=== PATIENT | male | born 1985 | race Caucasian/White ===

== ENCOUNTER 2023-04-03 08:07 | Outpatient (REF) | payer OTHER, SELFPAY ==
[2023-04-03 08:59] LABS: Hematocrit 38.8 % (42.0-52.0); Mean Corpuscular HGB Conc 33.5 g/dl (31.0-36.0); Mean Corpuscular Hemoglobin 28.6 pg (27.0-33.0); Mean Corpuscular Volume 85.5 fL (80.0-98.0); Mean Platelet Volume 10.4 fL (9.4-12.4); Platelet Count 262 X10*3/uL (160-400); Red Blood Count 4.54 X10*6/uL (4.60-5.80)
[2023-04-03 09:12] LABS: Estimated Average Glucose 108 mg/dL; Hemoglobin A1c % 5.4 %
[2023-04-03 09:47] LABS: Alanine Aminotransferase 41 U/L (0-40); Alkaline Phosphatase 91 U/L (39-117); Anion Gap 17 (12-20); Aspartate Amino Transferase 32 U/L (5-37); Bilirubin Total 0.3 mg/dL (0.0-1.0); Blood Urea Nitrogen 9 mg/dL (9-16); Carbon Dioxide 26 mmol/L (22-29); Chloride 105 mmol/L (96-108); Cholesterol 286 mg/dL; Estimated Glomerular Filt Rate > 60; Glucose Fasting 95 mg/dL (60-99); Glucose Random 95 mg/dL (60-115); HDL Cholesterol 33 mg/dL; Potassium 4.6 mmol/L (3.3-5.1); Sodium 143 mmol/L (135-145); Total Protein 7.3 g/dL (6.5-8.0); Triglycerides 439 mg/dL
[2023-04-03 09:54] LABS: TSH reflex Free T4 2.66 uIU/mL (0.32-4.0)
== END 2023-04-03 08:08 | disposition home or self-care (01) ==
LOC: HO.LAB 08:07
PROVIDERS: PCP Nurse Practitioner Family; Visit Provider Nurse Practitioner Family
DX: Z13.220 Encounter for screening for lipoid disorders (principal); Z13.29 Encounter for screening for other suspected endocrine disorder; Z13.0 Encounter for screening for diseases of the blood and blood-forming organs and certain disorders involving the immune mechanism; R73.09 Other abnormal glucose; I10 Essential (primary) hypertension
CPT/HCPCS: 36415; 80053; 80061; 83036; 84443; 85027

== ENCOUNTER 2023-04-26 10:27 | Outpatient (AMB) | payer OTHER, SELFPAY ==
--- NOTE | 2023-04-26 10:34 | MHC.PC.OV ---
Vital Signs 04/26/23 10:40 Height 6 ft Weight 302 lb BMI 41.0 BP 124/78 Blood Pressure Location Lt brachial Position Sitting Pulse 82 Pulse Source Pulse Oximeter Pulse Oximetry (%) 98 Oxygen Delivery Method Room Air Intake Visit Reasons: physical exam, HTN, Allergies ivp dye Allergy (Severe, Uncoded 04/26/23 10:40) Anaphylaxis Tobacco use date assessed: 04/26/23 Dental Screening Dental Screen Date: 04/26/23 Did you have a dental visit in the last 12 months?: Yes Did you have a dental problem in the last 6 months where you did not have access to dental care?: No Was dental information given to patient?: Patient has dentist HPI HPI Comments History of Present Illness Details 37-year-old male Past medical history significant for hypertension, anxiety, depression, past hx opiate abuse. Patient last seen in March for migraine was prescribed sumatriptan. Patient presents today for physical exam. Patient reports headaches have improved, has not required taking sumatriptan. Patient reports starting up with the [facility] program through [facility]. PAtient reports ongoing lumbar back pain/ neck pain for which he takes ibuprofen with relief of pain, state has not had recent imaging. Xray ordered. Referral sent to PT for lumbar back pain. Resides at [facility] Psych and therapist, [facility]; [facility]: sublicaide injection Eye exam: November 2022, reports he was told he has early stages of cataract. Complete labs completed the beginning of this month and reviewed with patient. [facility] Medical History Kyphosis Opioid abuse Family History Mother Substance abuse COPD (chronic obstructive pulmonary disease) Anxiety Father Brain aneurysm Paternal Grandmother Lung cancer Paternal Grandfather Liver cancer Maternal Grandmother Stomach cancer Liver cancer Other FH: mental illness Social History Housing: Assisted Living Facility Alcohol intake: never Patient Tobacco Use Status: Former Tobacco user Tobacco use type: Cigarette Cigarettes Per Day: 5 e-Cigarette/Vaping Use: Currently Using Second Hand Smoke Exposure: No service: No Current occupational status: unemployed Current occupational exposures/hazards: No Cognitive needs: No Hearing needs: No Vision needs: Yes Questionnaire PHQ-9 Over the last 2 weeks, how often have you been bothered by any of the following problems? 1. Little interest or pleasure in doing things: more than half the days 2. Feeling down, depressed, or hopeless: not at all 3. Trouble falling or staying asleep, or sleeping too much: more than half the days 4. Feeling tired or having little energy: several days 5. Poor appetite or overeating: not at all 6. Feeling bad about yourself - or that you are a failure or have let yourself or your family down: several days 7. Trouble concentrating on things, such as reading the newspaper or watching television: more than half the days 8. Moving or speaking so slowly that other people could have noticed. Or the opposite - being so fidgety or restless that you have been moving around a lot more than usual: more than half the days 9. Thoughts that you would be better off or of hurting yourself in some way: not at all Total score: 10 Depression Screening Interpretation: Positive [id number] - PHQ-9 Billing: Yes Source: Developed by Drs. Lazaro Palomares, Allyssa Orellana, Deangelo Ritchie and colleagues, with an educational ankit from [employer]. Thrive Questionnaire Date Thrive assessed: 04/26/23 I am a: Patient What is your living situation today?: I have a steady place to live Within the past 12 months, did the food you bought not last and you didn't have the money to get more?: Never true Within the past 12 months, did you worry whether your food would run out before you got money to buy more?: Never true Do you have trouble paying for medicines?: No Do you have trouble getting transportation to medical appointments?: No Do you have trouble paying your heating and electricity bill?: No Do you have trouble taking care of your child, family member or friend?: No Do you have trouble with day-to-day activities such as bathing, preparing meals, shopping, managing finances, etc.?: No Are you currently unemployed and looking for a job?: No Are you interested in more education?: No Currently or been in a relationship where the following occur: no concerns reported AUDIT C Alcohol Use Questionnaire (AUDIT-C) 1. How often do you have a drink containing alcohol?: Never Total Score: 0 Score Reviewed/Action Taken: No MAX-7 AMB Questionnaire MAX-7 Date MAX - 7 assessed: 01/19/23 Source: Developed by Drs. Lazaro Palomares, Allyssa Orellana, Deangelo Ritchie and colleagues, with an educational ankit from [employer]. Review of Systems Const Denies chills, Denies fatigue, Denies fever(s) and Denies poor appetite Eyes Denies no additional complaints ENT Reports Normal hearing present Card Denies chest pain, Denies syncope, Denies rapid heart rate and Denies dyspnea Resp Denies cough and Denies dyspnea GI Denies change in stool character, Denies constipation, Denies diarrhea, Denies nausea and Denies vomiting Denies dysuria, Denies urinary frequency and Denies urinary urgency Neuro Reports Normal hearing present, Denies confusion and Denies syncope Psych Denies confusion Endo Denies fatigue Physical exam (Primary Care) Vital Signs: Last Vital Signs Pulse 82 04/26/23 10:40 BP 124/78 04/26/23 10:40 Pulse Ox 98 04/26/23 10:40 Oxygen Delivery Method Room Air 04/26/23 10:40 BMI result Body Mass Index 41.0 Tobacco/Smoking Status: Tobacco use Status Tobacco use date assessed 04/26/23 04/26/23 10:47 Patient Tobacco Use Status Former Tobacco user 04/26/23 10:34 Tobacco use type Cigarette 04/26/23 10:34 e-Cigarette/Vaping Use Currently Using 04/26/23 10:34 PHQ-9: PHQ-9 Score PHQ-9: Total score 10 04/26/23 10:54 Depression Screening Interpretation: Positive Thrive Assessment: Date of Thrive Assessment Date Thrive assessed 04/26/23 04/26/23 10:47 Currently or been in a relationship where the following occur: no concerns reported Const General: No confusion Orientation/consciousness: No confusion HENMT Head: Yes normocephalic and Yes atraumatic Ears: external ears normal and TM's normal bilaterally General nose exam: Normal external nose present and Normal nasal mucous membranes and turbinates present Face and sinus: Yes normal facial exam and Yes sinuses nontender Mouth: moist mucous membranes Throat: Yes tonsils normal Eyes Conjunctivae: conjunctivae normal Sclerae: sclerae normal Pupils: Equal, round and reactive pupils present and Pupils normal by confrontation EOM: EOMs intact bilaterally Direct Ophthalmoscopy: normal light reflex Neck Neck: Yes no lymphadenopathy and Yes supple Thyroid: Thyroid normal Chest Chest palpation & inspection: normal inspection of the chest Resp Effort & Inspection: normal respiratory effort Auscultation: clear to auscultation bilaterally, no crackles, no rhonchi and no wheezes Cardio Rate: regular rate Rhythm: regular rhythm Peripheral pulses: radial pulses present and dorsalis pedis present GI Inspection: Yes normal to inspection Palpation (GI): Soft to palpation, nontender and No hepatosplenomegaly present Auscultation: normoactive bowel sounds Skin General skin exam: no rashes or lesions noted Neuro General: No confusion Cranial nerves: Yes Equal, round and reactive pupils present and Yes Normal hearing present Cognition (Neuro): normal cognition Gait exam (Neuro): Normal gait present Motor exam (neuro): 5/5 motor strength present throughout Deep tendon reflexes (DTR's): Right brachioradialis reflex intensity grade: 2+, Left brachioradialis reflex intensity grade: 2+, Right patellar reflex intensity grade: 2+ and Left patellar reflex intensity grade: 2+ Extrem General: No edema Assessment and Plan Assessment & Plan (1) Hypertriglyceridemia: Code(s): E78.1 - Pure hyperglyceridemia Plan: Avoid fried foods, chicken skin, eggs, butter,margarine, pastries and red meat. Repeat fasting labs in 3 months (2) HTN (hypertension): Code(s): I10 - Essential (primary) hypertension Plan: Continue on metoprolol. B/p below goal today. Follow low salt diet and exercise. (3) Opioid abuse: Code(s): F11.10 - Opioid abuse, uncomplicated Plan: Continue to follow with [facility]. (4) Physical exam, annual: Code(s): Z00.00 - Encounter for general adult medical examination without abnormal findings Plan: Follow up in 1 year (5) Degenerative disc disease, lumbar: Code(s): M51.36 - Other intervertebral disc degeneration, lumbar region Plan: Xray ordered, continue on ibuprofen as needed for pain. Referral sent to PT. Plan Follow up in 3 months. Orders: Orders XR cervical spine 2V Today M54.2 - Cervicalgia XR lumbar spine 2-3V Today M51.36 - Other intervertebral disc degeneration, lumbar region PT Evaluation and Treatment Today M51.36 - Other intervertebral disc degeneration, lumbar region Medications: Refilled metoprolol tartrate 25 mg PO BID 60 tabs 3RF I10 - Essential (primary) hypertension Coding Level of Care Code Est Pt Prev Care 40-64y(98600) Diagnoses Hypertriglyceridemia E78.1 HTN (hypertension) I10 Opioid abuse F11.10 Physical exam, annual Z00.00 Degenerative disc disease, lumbar M51.36
[2023-04-26 10:40] VITALS: BP 124/78; PULSE 82; O2SAT 98; BMI 41.0
== END 2023-04-26 11:17 | disposition home or self-care (01) ==
PROVIDERS: PCP Nurse Practitioner Family; Visit Provider Nurse Practitioner Family
DX: E78.1 Pure hyperglyceridemia (principal); I10 Essential (primary) hypertension; F11.10 Opioid abuse, uncomplicated; Z00.00 Encounter for general adult medical examination without abnormal findings; M51.36 Other intervertebral disc degeneration, lumbar region
CPT/HCPCS: 99396

== ENCOUNTER 2023-05-10 12:29 | Outpatient (REF) | payer OTHER, SELFPAY ==
--- NOTE | ~2023-05-10 | XR_ITS ---
EXAMINATION: XR CERVICAL SPINE CLINICAL INFORMATION: Pain. COMPARISON: None available. TECHNIQUE: 4 views submitted. FINDINGS: Some straightening of the normal cervical lordosis. There is early degenerative changes at C4-C5, C5-C6 and C6-C7 with some loss of disc height and some posterior spurring at C5-C6 greater than the other levels. Mild scoliosis convex left is seen. No listhesis or compression injury is seen. XR/XR cervical spine 2V IMPRESSION: Some early degenerative changes are present here. Mild straightening of the normal cervical lordosis may be due to position or spasm.
--- NOTE | ~2023-05-10 | XR_ITS ---
EXAMINATION: XR LUMBOSACRAL SPINE CLINICAL INFORMATION: Pain. COMPARISON: None available. TECHNIQUE: Three views of the lumbosacral spine. FINDINGS: There is grade 1 anterolisthesis of L5 relative to L4. Spondylolysis cannot be excluded on the imaging submitted. Loss of disc height at L4-L5 as well as L3-L4 and L2-L3 and at the thoracolumbar junction. Spurring in the endplates is noted. The SI joints are grossly patent. Some sclerotic change in the posterior elements from L4-L5 to L5-S1 could be degenerative. Mild anterolisthesis of L3 relative to L2 is also seen. XR/XR lumbar spine 2-3V IMPRESSION: Some degenerative change here appears [id number] with areas of listhesis. Spondylolysis cannot be excluded. No compression injury. If further evaluation is warranted consider .
== END 2023-05-10 12:30 | disposition home or self-care (01) ==
LOC: HO.XRAY 12:29
PROVIDERS: PCP Nurse Practitioner Family; Visit Provider Nurse Practitioner Family
DX: M54.2 Cervicalgia (principal); M51.36 Other intervertebral disc degeneration, lumbar region
CPT/HCPCS: 72040; 72100

== ENCOUNTER 2023-08-09 14:15 | Outpatient (AMB) | payer OTHER, SELFPAY ==
[2023-08-09 14:17] VITALS: BP 120/88; PULSE 95; O2SAT 95; BMI 40.3
--- NOTE | 2023-08-09 14:17 | A.OFFPC_ITS ---
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: No Accompanied by: Self / Same As Patient Allergies ivp dye Allergy (Severe, Uncoded 04/26/23 10:40) Anaphylaxis Tobacco use date assessed: 04/26/23 Dental Screening Dental Screen Date: 08/09/23 Did you have a dental visit in the last 12 months?: Yes Did you have a dental problem in the last 6 months where you did not have access to dental care?: No Was dental information given to patient?: Patient has dentist HPI HPI Comments History of Present Illness Details 37-year-old male Past medical history si gnificant for hypertension, anxiety, depression, past hx opiate abuse follows with [facility] on supple gait injections, lumbar degenerative disc disease. Never started PT, will call to set up. Patient reports he will call to set up PT for his lumbar back pain. Patient also reports migraine headaches have been coming more frequently and sometimes gets headaches daily. Patient states has been taking ibuprofen twice daily with somewhat improvement of the pain and he only takes this sumatriptan when headache is more severe. Patient does report mostly gets relief from sumatriptan however occasionally only gets minimal relief. Patient also reports ongoing tinnitus in the right ear that is very high-pitched that will last 30 seconds and states following this he reports total loss of hearing for 30 seconds. Patient requesting hearing study to be completed. [facility]LY [facility] Medical History Kyphosis Opioid abuse Family History Mother Substance abuse COPD (chronic obstructive pulmonary disease) Anxiety Father Brain aneurysm Paternal Grandmother Lung cancer Paternal Grandfather Liver cancer Maternal Grandmother Stomach cancer Liver cancer Other FH: mental illness Social History Housing: Assisted Living Facility Alcohol intake: never Patient Tobacco Use Status: Former Tobacco user Tobacco use type: Cigarette Cigarettes Per Day: 5 e-Cigarette/Vaping Use: Currently Using Second Hand Smoke Exposure: No service: No Current occupational status: unemployed Current occupational exposures/hazards: No Cognitive needs: No Hearing needs: No Vision needs: Yes Questionnaire Thrive Questionnaire Date Thrive assessed: 04/26/23 MAX-7 AMB Questionnaire MAX-7 Date MAX - 7 assessed: 01/19/23 Source: Developed by Drs. Lazaro Palomares, Allyssa Orellana, Deangelo Ritchie and colleagues, with an educational ankit from [employer]. Review of Systems Const Denies chills, Denies fatigue, Denies fever(s) and Denies poor appetite Eyes Denies no additional complaints ENT Reports Normal hearing present Card Denies chest pain, Denies syncope, Denies rapid heart rate and Denies dyspnea Resp Denies cough and Denies dyspnea GI Denies change in stool character, Denies constipation, Denies diarrhea, Denies nausea and Denies vomiting Denies dysuria, Denies urinary frequency and Denies urinary urgency Neuro Reports Normal hearing present, Denies confusion and Denies syncope Psych Denies confusion Endo Denies fatigue Physical exam (Primary Care) Vital Signs: Last Vital Signs Pulse 95 08/09/23 14:17 BP 120/88 08/09/23 14:17 Pulse Ox 95 08/09/23 14:17 Oxygen Delivery Method Room Air 08/09/23 14:17 BMI result Body Mass Index 40.3 Tobacco/Smoking Status: Tobacco use Status Tobacco use date assessed 04/26/23 08/09/23 14:18 Patient Tobacco Use Status Former Tobacco user 08/09/23 14:18 Tobacco use type Cigarette 08/09/23 14:18 e-Cigarette/Vaping Use Currently Using 08/09/23 14:18 Thrive Assessment: Date of Thrive Assessment Date Thrive assessed 04/26/23 08/09/23 14:18 Const General: No confusion Orientation/consciousness: No confusion HENMT Head: Yes normocephalic and Yes atraumatic Eyes Conjunctivae: conjunctivae normal Chest Chest palpation & inspection: normal inspection of the chest Resp Effort & Inspection: normal respiratory effort Auscultation: clear to auscultation bilaterally, no crackles, no rhonchi and no wheezes Cardio Rate: regular rate Rhythm: regular rhythm Heart sounds: S1 normal heart sound present and S2 normal heart sound present GI Inspection: Yes normal to inspection Neuro General: No confusion Cranial nerves: Yes Normal hearing present Extrem General: No edema Assessment and Plan Assessment & Plan (1) Tinnitus: Code(s): H93.19 - Tinnitus, unspecified ear Plan: Referral entered to speech and hearing for further evaluation. (2) Obesity: Code(s): E66.9 - Obesity, unspecified Plan: Patient requesting referral to weight management, referral entered (3) Headache: Code(s): R51.9 - Headache, unspecified Plan: Continue on ibuprofen as needed for headaches and sumatriptan. Patient requesting referral to Neurology for further evaluation of his headaches, referral entered. (4) Degenerative disc disease, lumbar: Code(s): M51.36 - Other intervertebral disc degeneration, lumbar region Plan: Patient advised to proceed with physical therapy. (5) HTN (hypertension): Code(s): I10 - Essential (primary) hypertension Plan: Continue on metoprolol 25 mg b.i.d.. Blood pressure goal less than 140/90. Follow low-salt diet and exercise. Plan Follow-up in 3 months. Orders: Orders Complete Blood Count Auto Diff 08/09/23 D64.9 - Anemia, unspecified Referrals Speech and Hearing Referral H93.19 - Tinnitus, unspecified ear Medical Weight Management Referral E66.9 - Obesity, unspecified Neurology Referral R51.9 - Headache, unspecified Medications: Refilled omeprazole 20 mg PO DAILY PRN 90 caps 2RF gastric reflux metoprolol tartrate 25 mg PO BID 60 tabs 3RF I10 - Essential (primary) hypertension loratadine 10 mg PO DAILY 90 tabs 2RF Coding Level of Care Code Est Pt Level 4 (55886) Diagnoses Tinnitus H93.19 Obesity E66.9 Headache R51.9 Degenerative disc disease, lumbar M51.36 HTN (hypertension) I10
== END 2023-08-09 14:43 | disposition home or self-care (01) ==
PROVIDERS: PCP Nurse Practitioner Family; Visit Provider Nurse Practitioner Family
DX: H93.11 Tinnitus, right ear (principal); I10 Essential (primary) hypertension; E66.9 Obesity, unspecified; Z68.41 Body mass index [BMI] 40.0-44.9, adult; R51.9 Headache, unspecified; M51.36 Other intervertebral disc degeneration, lumbar region
CPT/HCPCS: 99214

== ENCOUNTER 2023-09-05 09:07 | Outpatient (REF) | payer OTHER, SELFPAY ==
[2023-09-05 09:28] LABS: MANUAL DIFF FLAG NO
[2023-09-05 09:40] LABS: Basophils Absolute Auto 0.1 X10*3/uL (0.0-0.2); Basophils Percent Auto 0.9 % (0-2); Eosinophils Absolute Auto 0.4 X10*3/uL (0.0-0.4); Eosinophils Percent Auto 4.9 % (0-4); Hematocrit 40.1 % (42.0-52.0); Hemoglobin 13.4 g/dl (14.0-18.0); Imm Gran Abs Auto 0.06 X10*3/uL (0.00-0.03); Imm Gran Pct Auto 0.7 % (0.0-0.4); Lymphocytes Absolute Auto 1.7 X10*3/uL (1.2-4.9); Lymphocytes Percent Auto 20.8 % (20-40); Mean Corpuscular HGB Conc 33.4 g/dl (31.0-36.0); Mean Corpuscular Hemoglobin 28.4 pg (27.0-33.0); Mean Platelet Volume 9.8 fL (9.4-12.4); Monocytes Absolute Auto 0.5 X10*3/uL (0.1-1.2); Monocytes Percent Auto 5.8 % (2-11); Neutrophils Absolute Auto 5.5 x10*3/uL (2.0-8.3); Neutrophils Percent Auto 66.9 % (45-73); Platelet Count 300 X10*3/uL (160-400); Red Blood Count 4.72 X10*6/uL (4.60-5.80); Red Cell Distribution Width 14.3 % (11.0-16.0); White Blood Count 8.2 X10*3/uL (4.8-10.8)
[2023-09-05 10:18] LABS: Alanine Aminotransferase 46 U/L (0-40); Albumin Level 4.3 g/dL (3.5-5.0); Alkaline Phosphatase 124 U/L (39-117); Anion Gap 11 (12-20); Aspartate Amino Transferase 33 U/L (5-37); Bilirubin Total 0.3 mg/dL (0.0-1.0); Blood Urea Nitrogen 9 mg/dL (9-16); Calcium 10.2 mg/dL (8.4-10.2); Carbon Dioxide 29 mmol/L (22-29); Chloride 106 mmol/L (96-108); Cholesterol 251 mg/dL (<200); Estimated Glomerular Filt Rate > 60; Glucose Fasting 99 mg/dL (60-99); HDL Cholesterol 37 mg/dL (>40); LDL Cholesterol Calculated 152 mg/dL (<100); Potassium 4.2 mmol/L (3.3-5.1); Sodium 142 mmol/L (135-145); Total Protein 7.9 g/dL (6.5-8.0); Triglycerides 312 mg/dL (<150)
== END 2023-09-05 09:08 | disposition home or self-care (01) ==
LOC: HO.LAB 09:07
PROVIDERS: Visit Provider Nurse Practitioner Family
DX: E78.1 Pure hyperglyceridemia (principal); D64.9 Anemia, unspecified
CPT/HCPCS: 36415; 80053; 80061; 85025

== ENCOUNTER 2023-09-07 10:04 | Outpatient (AMB) | payer OTHER, SELFPAY ==
--- NOTE | 2023-09-07 11:47 | MHC.OFFWIV ---
Intake Vital Signs 09/07/23 11:51 Height 6 ft Weight 298 lb BMI 40.4 BP 140/90 H Blood Pressure Location Rt brachial Position Sitting Pulse 88 Pulse Source Pulse Oximeter Temp 97.1 F Temp Source Temporal Artery Scan Pulse Oximetry (%) 95 Oxygen Delivery Method Room Air Intake Visit Reasons: EP Coug(masked) Dropped off Intake Note: Pt is here c/o bad cough since 08/26/23. Pt states he has tried otc medication but they are not working. Pt states he is in a recovery home and can only take better medications if prescribed. Pt is requesting possible steroid for cough. Pt states his cough is painful and has a bad taste. Patient Tobacco Use Status: Former Tobacco user Allergies ivp dye Allergy (Severe, Uncoded 09/07/23 11:52) Anaphylaxis Do you need a note to return to daycare/school/sports/work: No HPI HPI Comments History of Present Illness Details Patient is a 38yo M who presents for cough He is in a transition house and they recommended him be seen for his cough He had URI symptoms since with cough, congestion, body aches, fatigue etc He said sinus symptoms have cleared and he only has lingering cough No fever or chills No phlegm Minimal SOB sometimes with exertion Sometimes wheeze at night Using OTC cough medicine, vicks rub, tylenol prn without resolution Feeling well otherwise. No other complaints [facility] Medical History Kyphosis Opioid abuse Family History Mother Substance abuse COPD (chronic obstructive pulmonary disease) Anxiety Father Brain aneurysm Paternal Grandmother Lung cancer Paternal Grandfather Liver cancer Maternal Grandmother Stomach cancer Liver cancer Other FH: mental illness Social History Housing: Assisted Living Facility Alcohol intake: never Patient Tobacco Use Status: Former Tobacco user Tobacco use type: Cigarette Cigarettes Per Day: 5 e-Cigarette/Vaping Use: Currently Using Second Hand Smoke Exposure: No service: No Current occupational status: unemployed Current occupational exposures/hazards: No Cognitive needs: No Hearing needs: No Vision needs: Yes Review of Systems Const Denies body aches, Denies chills, Denies fatigue, Denies fever(s) and Denies headache(s) Eyes Denies blurry vision ENT Denies otalgia, Denies headache(s), Denies nasal congestion, Denies nasal discharge, Denies sinus pain, Denies sinus pressure and Denies sore throat Card Denies chest pain and Denies chest pain at rest Resp Reports cough and Denies pain with cough GI Denies abdominal pain Neuro Denies headache(s) Endo Denies fatigue Physical Exam Vital Signs: Last Vital Signs Temp 97.1 F 09/07/23 11:51 Pulse 88 09/07/23 11:51 BP 140/90 H 09/07/23 11:51 Pulse Ox 95 09/07/23 11:51 Oxygen Delivery Method Room Air 09/07/23 11:51 BMI result Body Mass Index 40.4 General: Non-toxic, NAD. Speaking full sentences. Skin: Warm dry throughout Eye: EOMI HENT: Airway patent. Uvula midline. No pharyngeal erythema or edema. No SENIOR ADMINISTRATIVE SUPPORT. Bilateral canals clear. TM non-erythematous, non-bulging. No TM perforation or hemotympanum noted. Respiratory: CTA bilaterally. No wheezes, rales or rhonchi Cardiac: RRR. No murmur MSK: Full ROM extremities. Neurology: A/O. No aphasia or facial droop. Gait without abnormality Psych: Good mood and affect Assessment & Plan Assessment & Plan (1) Cough: Code(s): R05.9 - Cough, unspecified Qualifiers: Cough type: acute Qualified Code(s): R05.1 - Acute cough Plan Patient seen and evaluated. Thorough aucultation of lungs are clear No respiratory distress Tessalon for cough Increase fluids and monitor for 4 more days Any onset fever, SOB< worsening cough etc go to ED PCP follow up Patient gave verbal understanding and had no additional questions or concerns at time of discharge All questions answered Medications: New benzonatate 200 mg PO BID-TID PRN 14 caps 0RF cough R05.9 - Cough, unspecified Coding Level of Care Code Est Pt Level 3 (28884) Diagnoses Acute cough R05.1 Cough type: acute
[2023-09-07 11:51] VITALS: BP 140/90; PULSE 88; TEMP 36.2; O2SAT 95; BMI 40.4
== END 2023-09-07 12:22 | disposition home or self-care (01) ==
PROVIDERS: PCP Nurse Practitioner Family; Visit Provider Physician Assistant
DX: R05.1 Acute cough (principal)
CPT/HCPCS: 99213

== ENCOUNTER 2023-09-20 15:27 | Outpatient (AMB) | payer OTHER, SELFPAY ==
--- NOTE | 2023-09-20 15:29 | A.OFFPC_ITS ---
Vital Signs 09/20/23 15:31 Height 6 ft Weight 302 lb 2 oz BMI 41.0 BP 128/78 Blood Pressure Location Lt brachial Position Sitting Pulse 83 Pulse Source Pulse Oximeter Pulse Oximetry (%) 97 Oxygen Delivery Method Room Air Intake Visit Reasons: Abnormal Lab results Intake Note: Patient is here to follow up on abnormal lab results. Complaint of coughing and wheezing, covid test neg. Solution Consultant Required: No Supervisor Home Energy Consultant: Present Accompanied by: staff Allergies ivp dye Allergy (Severe, Uncoded 09/20/23 16:05) Anaphylaxis Medication List - Last Reconciled 09/20/23 by Ruy Clarke MD acetaminophen ER (Pain Relief (acetaminophen)) 650 mg PO Q8H buprenorphine ER (Sublocade) mg subcut buspirone 10 mg PO TID clonidine HCl 0.1 mg PO BEDTIME PRN ibuprofen 600 mg PO Q6H PRN loratadine 10 mg PO DAILY magnesium hydroxide (Milk Of Magnesia Concentrated) 5 mL PO DAILY PRN melatonin 5 mg PO BEDTIME PRN metoprolol tartrate 25 mg PO BID naloxone 4 mg/actuation (Narcan) 4 mg intranasal Q2M PRN omeprazole 20 mg PO DAILY PRN sertraline 100 mg PO DAILY sumatriptan succinate take 1 tab at onset of headache; if no relief may repeat 1 tab after at least 2 hrs; max = 4 tabs/24 hr PO Tobacco use date assessed: 09/20/23 Dental Screening Did you have a dental visit in the last 12 months?: Yes Did you have a dental problem in the last 6 months where you did not have access to dental care?: No Was dental information given to patient?: Patient has dentist HPI Abnormal Lab results HPI Details 38-year-old male presents to the office to discuss his medical conditions. He is transferring his care as his primary care provider has left the practice. Patient lives in a snf. Is recovering from substance use and is on Sublocade. He came to this visit with the staff from the snf. Patient is slowly recovering from an upper respiratory tract infection. Continues to have some wheezing and congestion. Recent blood work done was abnormal for increased cholesterol levels and slightly increased liver functions. Patient is not exercising or following any particular diet. [facility] Medical History (Updated 09/20/23 @ 16:08 by Ruy Clarke MD) Familial hypercholesterolemia Kyphosis Opioid abuse Surgical History (Updated 09/20/23 @ 15:36 by ИРИНА Smyth) No pertinent past surgical history Family History Mother Substance abuse COPD (chronic obstructive pulmonary disease) Anxiety Father Brain aneurysm Paternal Grandmother Lung cancer Paternal Grandfather Liver cancer Maternal Grandmother Stomach cancer Liver cancer Other FH: mental illness Social History (Updated 09/20/23 @ 15:36 by ИРИНА Smyth) Housing: Assisted Living Facility Alcohol intake: never Patient Tobacco Use Status: Current someday Tobacco user Tobacco use type: Cigarette Cigarettes Per Day: 3 e-Cigarette/Vaping Use: Currently Using Second Hand Smoke Exposure: No service: No Current occupational status: unemployed Current occupational exposures/hazards: No Cognitive needs: No Hearing needs: No Vision needs: Yes Questionnaire PHQ-9 Over the last 2 weeks, how often have you been bothered by any of the following problems? 1. Little interest or pleasure in doing things: not at all 2. Feeling down, depressed, or hopeless: several days (on medication) 3. Trouble falling or staying asleep, or sleeping too much: not at all 4. Feeling tired or having little energy: not at all 5. Poor appetite or overeating: not at all 6. Feeling bad about yourself - or that you are a failure or have let yourself or your family down: not at all 7. Trouble concentrating on things, such as reading the newspaper or watching television: not at all 8. Moving or speaking so slowly that other people could have noticed. Or the opposite - being so fidgety or restless that you have been moving around a lot more than usual: not at all 9. Thoughts that you would be better off or of hurting yourself in some way: not at all Total score: 1 Source: Developed by Drs. Lazaro Palomares, Allyssa Orellana, Deangelo Ritchie and colleagues, with an educational ankit from [employer]. Thrive Questionnaire Date Thrive assessed: 09/20/23 I am a: Patient What is your living situation today?: I have a steady place to live Within the past 12 months, did the food you bought not last and you didn't have the money to get more?: Never true Within the past 12 months, did you worry whether your food would run out before you got money to buy more?: Never true Do you have trouble paying for medicines?: No Do you have trouble getting transportation to medical appointments?: No Do you have trouble paying your heating and electricity bill?: No Do you have trouble taking care of your child, family member or friend?: No Do you have trouble with day-to-day activities such as bathing, preparing meals, shopping, managing finances, etc.?: No Are you currently unemployed and looking for a job?: No Are you interested in more education?: No Currently or been in a relationship where the following occur: no concerns reported AUDIT C Alcohol Use Questionnaire (AUDIT-C) 1. How often do you have a drink containing alcohol?: Never Total Score: 0 MAX-7 AMB Questionnaire MAX-7 Date MAX - 7 assessed: 09/20/23 Feeling nervous, anxious, or on edge: 1 = Several days (on medication) Not being able to stop or control worryin = Not at all Worrying too much about different things: 0 = Not at all Trouble relaxin = Not at all Being so restless that it is hard to sit still: 0 = Not at all Becoming easily annoyed or irritable: 0 = Not at all Feeling afraid as if something awful might happen: 0 = Not at all Total MAX-7 score (0-4 normal; 5-9 mild; 10-14 moderate; 15-21 severe): 1 Source: Developed by Drs. Lazaro Palomares, Allyssa Orellana, Deangelo Ritchie and colleagues, with an educational ankit from [employer]. Physical exam (Primary Care) Vital Signs: Last Vital Signs Pulse 83 09/20/23 15:31 BP 128/78 09/20/23 15:31 Pulse Ox 97 09/20/23 15:31 Oxygen Delivery Method Room Air 09/20/23 15:31 BMI result Body Mass Index 41.0 Tobacco/Smoking Status: Tobacco use Status Tobacco use date assessed 09/20/23 09/20/23 15:38 Patient Tobacco Use Status Current someday Tobacco 09/20/23 15:38 Tobacco use type Cigarette 09/20/23 15:38 e-Cigarette/Vaping Use Currently Using 09/20/23 15:38 PHQ-9: PHQ-9 Score PHQ-9: Total score 1 09/20/23 15:38 Thrive Assessment: Date of Thrive Assessment Date Thrive assessed 09/20/23 09/20/23 15:38 Currently or been in a relationship where the following occur: no concerns reported Const General: cooperative and healthy appearing Nutritional Appearance: well nourished Orientation/consciousness: patient oriented x3 Limitations: no limitations HENMT Head: Yes normal to inspection Eyes General: appearance normal, both eyes and all related structures Neck Neck: Yes normal visual inspection Chest Chest palpation & inspection: normal palpation of entire chest wall Resp Effort & Inspection: normal respiratory effort Neuro General: patient oriented x3 Assessment and Plan Assessment & Plan (1) Familial hypercholesterolemia: Code(s): E78.01 - Familial hypercholesterolemia Plan: Statins started. Blood work reviewed with patient. Coding Level of Care Code Est Pt Level 3 (49426) Diagnoses Familial hypercholesterolemia E78.01
[2023-09-20 15:31] VITALS: BP 128/78; PULSE 83; O2SAT 97; BMI 41.0
== END 2023-09-20 16:07 | disposition home or self-care (01) ==
PROVIDERS: PCP Nurse Practitioner Family; Visit Provider Internal Medicine
DX: E78.01 Familial hypercholesterolemia (principal)
CPT/HCPCS: 99213

== ENCOUNTER → 2023-12-05 11:08 | Outpatient (BNVA) | payer OTHER, SELFPAY | PROVIDERS: PCP Nurse Practitioner Family; Visit Provider Physician Assistant Surgical ==

== ENCOUNTER 2023-12-20 11:22 | Emergency (ER) | payer OTHER, SELFPAY ==
--- NOTE | 2023-12-20 11:54 | ED.SKABFB ---
HPI - Skin/Abscess/Foreign Bdy General Stated complaint: exposed to scabbies Time Seen by Provider: 12/20/23 11:40 Source: patient Mode of arrival: ambulatory Limitations: no limitations History of Present Illness HPI narrative: 38 yo patient at prison scabies exposure here asking for permethrin has no lesions MD complaint: other Onset (ago): day(s) (1) Relieving factors: none Exacerbating factors: none Context: other Associated symptoms: denies other symptoms Treatments prior to arrival: none Related Data Home Medications ?Medication ?Instructions ?Recorded ?Confirmed acetaminophen 650 mg 650 mg PO Q8H 01/19/23 02/09/23 tablet,extended release (Pain Relief (acetaminophen)) clonidine HCl 0.1 mg tablet 0.1 mg PO BEDTIME PRN 01/19/23 02/09/23 ibuprofen 600 mg tablet 600 mg PO Q6H PRN 01/19/23 02/09/23 magnesium hydroxide 2,400 mg/10 mL 5 ml PO DAILY PRN 01/19/23 02/09/23 oral suspension (Milk Of Magnesia Concentrated) melatonin 5 mg tablet 5 mg PO BEDTIME PRN 01/19/23 02/09/23 naloxone 4 mg/actuation nasal 4 mg intranasal Q2M PRN 01/19/23 02/09/23 spray (Narcan) sertraline 100 mg tablet 100 mg PO DAILY 01/19/23 02/09/23 buprenorphine 100 mg/0.5 mL mg subcut 03/05/23 solution,exten.rel.subcutaneous syringe (Sublocade) buspirone 10 mg tablet 10 mg PO TID 09/20/23 buprenorphine 100 mg/0.5 mL mg subcut 12/05/23 solution,exten.rel.subcutaneous syringe (Sublocade) Previous Rx's ?Medication ?Instructions ?Recorded sumatriptan succinate 25 mg tablet See Rx Instructions PO .COMPLEX 07/17/23 #20 tabs metoprolol tartrate 25 mg tablet 25 mg PO BID #60 tabs 12/17/23 atorvastatin 10 mg tablet 10 mg PO BEDTIME #90 tabs 12/18/23 loratadine 10 mg tablet 10 mg PO DAILY #90 tabs 12/18/23 omeprazole 20 mg capsule,delayed 20 mg PO DAILY PRN gastric reflux 12/18/23 release #90 caps permethrin 5 % topical cream 1 appl topical Q14D 2 doses #60 12/20/23 grams Allergies Allergy/AdvReac Type Severity Reaction Status Date / Time ivp dye Allergy Severe Anaphylaxis Uncoded 12/05/23 13:40 Review of Systems Review of Systems: Constitutional : No Fever, No Chills, Cardiovascular : No Chest Pain, No SOB Respiratory : No Dyspnea Gastrointestinal : No abdominal pain Musculoskeletal : No Joint Swelling Skin : No rash, no skin laceration Neuro : No Weakness, No Numbness Psych : No SI/HI PMFSH Past Medical History Attestation statement: The following information was validated with the patient. Source: old records reviewed Medical History Familial hypercholesterolemia Kyphosis Opioid abuse Surgical History (Updated 09/20/23 @ 15:36 by ИРИНА Smyth) No pertinent past surgical history Family History Family History Mother Substance abuse COPD (chronic obstructive pulmonary disease) Anxiety Father Brain aneurysm Paternal Grandmother Lung cancer Paternal Grandfather Liver cancer Maternal Grandmother Stomach cancer Liver cancer Other FH: mental illness Social History Social History Housing: Assisted Living Facility Alcohol intake: never Patient Tobacco Use Status: Current someday Tobacco user Tobacco use type: Cigarette Cigarettes Per Day: 3 e-Cigarette/Vaping Use: Currently Using Second Hand Smoke Exposure: No service: No Current occupational status: unemployed Current occupational exposures/hazards: No Cognitive needs: No Hearing needs: No Vision needs: Yes Physical Exam Vital Signs: Appearance: Alert. Oriented X3. No acute distress. Eyes: Pupils equal, round and reactive to light. ENT: Pharynx normal. Neck: Normal inspection. Neck supple. CVS: Pulses normal. Respiratory: No respiratory distress. Abdomen: atraumatic Skin: Skin warm and dry. Normal skin color. Extremities: No lower extremity edema. Neuro: Oriented X 3. No motor deficit. No sensory deficit. Medical Decision Making Medical Decision Making [facility] Narrative: 38 yo patient with scabies exposure at prison here asking for permethrin at this time will start on cream - no lesions or complaints Differential Diagnosis Differential Diagnoses: The differential diagnosis associated with the presentation includes scabies exposure External Record Review External record reviewed: Inpatient record Prescription Management I considered prescription management with: Other Discharge Plan Discharge Clinical Impression: Scabies exposure Patient Disposition: Home, Self-Care Instructions: Scabies (ED) Additional Instructions: return for worsening symptoms or concerns. Prescriptions: New permethrin 5 % cream 1 appl topical Q14D Qty: 60 0RF Rx Instructions: apply second treatment 14 days after first treatment if live lice remain No Action sumatriptan succinate 25 mg tablet See Rx Instructions PO .COMPLEX Qty: 20 0RF Rx Instructions: take 1 tab at onset of headache; if no relief may repeat 1 tab after at least 2 hrs; max = 4 tabs/24 hr PO metoprolol tartrate 25 mg tablet 25 mg PO BID Qty: 60 3RF atorvastatin 10 mg tablet 10 mg PO BEDTIME Qty: 90 1RF omeprazole 20 mg capsule,delayed release(DR/EC) 20 mg PO DAILY PRN (Reason: gastric reflux) Qty: 90 2RF loratadine 10 mg tablet 10 mg PO DAILY Qty: 90 2RF buspirone 10 mg tablet 10 mg PO TID acetaminophen [Pain Relief (acetaminophen)] 650 mg tablet extended release 650 mg PO Q8H clonidine HCl 0.1 mg tablet 0.1 mg PO BEDTIME PRN ibuprofen 600 mg tablet 600 mg PO Q6H PRN melatonin 5 mg tablet 5 mg PO BEDTIME PRN magnesium hydroxide [Milk Of Magnesia Concentrated] 2,400 mg/10 mL suspension 5 ml PO DAILY PRN naloxone [Narcan] 4 mg/actuation spray,non-aerosol 4 mg intranasal Q2M PRN Rx Instructions: spray 1 dose into ONE nostril; alternate nostrils w each dose until help arrives sertraline 100 mg tablet 100 mg PO DAILY Sublocade 100 mg/0.5 mL solution, extended rel syringe subcut Sublocade 100 mg/0.5 mL solution, extended rel syringe subcut Print Language: Kiswahili
[2023-12-20 12:22] VITALS: BP 132/75; PULSE 89; RESP 16; TEMP 36; O2SAT 95; BMI 41.1
[2023-12-20 12:48] VITALS: BP 132/75; PULSE 89; RESP 16; TEMP 36; O2SAT 96
--- NOTE | 2023-12-20 14:04 | MHC.CM.ED ---
[facility] Nurse made aware of scabies issue at custodial.
== END 2023-12-20 12:49 | disposition home or self-care (01) ==
PROVIDERS: Emergency Provider Emergency Medicine; PCP Internal Medicine
DX: Z20.7 Contact with and (suspected) exposure to pediculosis, acariasis and other infestations (principal)
CPT/HCPCS: 99282; 99283

== ENCOUNTER 2024-01-10 09:55 | Outpatient (AMB) | payer OTHER, SELFPAY ==
--- NOTE | 2024-01-10 10:09 | MHC.PC.OV ---
Vital Signs 01/10/24 10:12 Height 5 ft 10 in Weight 301 lb 2 oz BMI 43.2 BP 100/70 Blood Pressure Location Lt brachial Position Sitting Pulse 84 Pulse Source Pulse Oximeter Pulse Oximetry (%) 98 Oxygen Delivery Method Room Air Intake Visit Reasons: 3mth f/u Intake Note: Patient is here to follow up on HTN, LDDD, Hypertriglyceridemia, Hypercholesterolemia. Employee Benefits Attorney Required: No Preservationist: Not Required per policy Accompanied by: Self / Same As Patient Allergies ivp dye Allergy (Severe, Uncoded 01/13/24 13:53) Anaphylaxis Tobacco use date assessed: 01/10/24 Dental Screening Dental Screen Date: 01/10/24 Did you have a dental visit in the last 12 months?: Yes Did you have a dental problem in the last 6 months where you did not have access to dental care?: No Was dental information given to patient?: Patient has dentist HPI 3mth f/u HPI Details 38-year-old male presents to the office to discuss his medical condition. I will be picking up his care as his primary provider has left the practice. Patient has history of substance use, hyper cholesterolemia, obesity. Patient will be seeing a bariatric surgeon for weight management. Take statins for hyper cholesterolemia. Patient is on Sublocade. Able to function and do activities of daily living. [facility] Medical History (Updated 12/21/23 @ 00:00 by Noni Manley) Familial hypercholesterolemia Kyphosis Opioid abuse Surgical History No pertinent past surgical history Family History Mother Substance abuse COPD (chronic obstructive pulmonary disease) Anxiety Father Brain aneurysm Paternal Grandmother Lung cancer Paternal Grandfather Liver cancer Maternal Grandmother Stomach cancer Liver cancer Other FH: mental illness Social History (Updated 01/10/24 @ 10:23 by ИРИНА Smyth) Housing: Assisted Living Facility Alcohol intake: former Patient Tobacco Use Status: Former Tobacco user Cigarettes Per Day: 3 e-Cigarette/Vaping Use: Currently Using Second Hand Smoke Exposure: Yes service: No Current occupational status: unemployed Current occupational exposures/hazards: No Cognitive needs: No Hearing needs: No Vision needs: Yes Questionnaire Thrive Questionnaire Date Thrive assessed: 09/20/23 MAX-7 AMB Questionnaire MAX-7 Date MAX - 7 assessed: 09/20/23 Source: Developed by DrsSharonda Palomares, Allyssa Orellana, Deangelo Ritchie and colleagues, with an educational ankit from [email or web address]. Physical exam (Primary Care) Vital Signs: Last Vital Signs Pulse 84 01/10/24 10:12 BP 100/70 01/10/24 10:12 Pulse Ox 98 01/10/24 10:12 Oxygen Delivery Method Room Air 01/10/24 10:12 BMI result Body Mass Index 43.2 BMI Assessment/Plan discussion: High BMI High, discussed plan: lifestyle, weight reduction and dietary Tobacco/Smoking Status: Tobacco use Status Tobacco use date assessed 01/10/24 01/10/24 10:12 Patient Tobacco Use Status Former Tobacco user 01/10/24 10:24 Tobacco use type 01/10/24 10:24 e-Cigarette/Vaping Use Currently Using 01/10/24 10:23 Thrive Assessment: Date of Thrive Assessment Date Thrive assessed 09/20/23 01/10/24 10:12 Const General: cooperative and healthy appearing Nutritional Appearance: well nourished Orientation/consciousness: patient oriented x3 Limitations: no limitations HENMT Head: Yes normal to inspection Eyes General: appearance normal, both eyes and all related structures Neck Neck: Yes normal visual inspection Chest Chest palpation & inspection: normal palpation of entire chest wall Resp Effort & Inspection: normal respiratory effort Neuro General: patient oriented x3 Assessment and Plan Assessment & Plan (1) Familial hypercholesterolemia: Code(s): E78.01 - Familial hypercholesterolemia Plan: Blood work has been ordered. (2) Opioid abuse: Code(s): F11.10 - Opioid abuse, uncomplicated Plan: Patient is taking Sublocade. Orders: Orders Lipid Panel 01/10/24 E78.01 - Familial hypercholesterolemia Medications: Discontinued permethrin 5% apply second treatment 14 days after first treatment if live lice remain Discontinued Reason: Doctor's Order 1 appl topical Q14D 60 grams 0RF loratadine Discontinued Reason: Doctor's Order 10 mg PO DAILY 90 tabs 2RF Coding Level of Care Code Est Pt Level 4 (34318) Diagnoses Familial hypercholesterolemia E78.01 Opioid abuse F11.10
[2024-01-10 10:12] VITALS: BP 100/70; PULSE 84; O2SAT 98; BMI 43.2
== END 2024-01-10 10:37 | disposition home or self-care (01) ==
PROVIDERS: PCP Nurse Practitioner Family; Visit Provider Internal Medicine
DX: E78.01 Familial hypercholesterolemia (principal); F11.10 Opioid abuse, uncomplicated
CPT/HCPCS: 99214

== ENCOUNTER 2024-02-21 13:23 | Outpatient (AMB) | payer OTHER, SELFPAY ==
--- NOTE | 2024-02-21 13:27 | MHC.OFFVIS ---
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 Ringing in the ears Allergies ivp dye Allergy (Severe, Uncoded 01/13/24 13:53) Anaphylaxis Medication List - Last Reconciled 02/21/24 by MARIS Latham acetaminophen ER (Pain Relief (acetaminophen)) 650 mg PO Q8H atorvastatin 10 mg PO BEDTIME betamethasone, augmented 0.05 % topical BID buprenorphine ER (Sublocade) mg subcut buspirone 10 mg PO TID clonidine HCl 0.1 mg PO BEDTIME PRN metoprolol tartrate 25 mg PO BID omeprazole 20 mg PO DAILY PRN sertraline 200 mg PO DAILY sumatriptan succinate take 1 tab at onset of headache; if no relief may repeat 1 tab after at least 2 hrs; max = 4 tabs/24 hr PO HPI Comments Details: Right-handed 39-yr-old male presents for new pt evaluation of headache disorder and tinnitus. Pt accompanied by Shea, his acre coordinator from his support home. Pt reports he has headaches for about 2.5 yrs ago. These came out of the blue. In the past month, the headaches are not as severe. He has had bilateral L > R ear ringing x's 5 yrs.- he denies any known preceding causes. He has not seen ENT. He has been referred for audiology consult. 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 The tinnitus can change intensity w/o provocation, but is worse when anxious or when his BP is elevated. Jaw movement does not change the tinnitus significantly. PMH and ROS are notable for:? General: currently in recovery Musculoskeletal disorders or injury: thoracic kyphosis, Lumbar DDD, neck tightness. Mood d/o: Anxiety, Depression, PTSD, had neuro-psych eval at the [facility] last week for ? ADD, ? OCD. In recovery, has mx therapists. CV disease: HTN HLD. Has made recent diet changes. GI meds: Constipation- med induced. Family history of migraine or other headache disorder: mother had headaches and unruptured symptomatic brain aneurysm- caused speech/gait changes. Paternal grandfather had ruptured brain aneurysm. Pertinent denials include: History of concussion/head injury, Sleep d/o, Respiratory d/o, Clotting or hematology d/o, Endocrine or metabolic d/o, History of seizure, syncope, or drop attacks, Leg Cramps, Lifestyle considerations: Sleep routine: Usual bedtime: 10-11pm and wake-up time: 7-8am Sleep difficulties: Endorses: fragmented sleep, Snoring Caffeine use: occasional 1/2-1 cup of coffee. previously taking a lot of Mt Dew- but has stopped and switched to flavored water. Substance use: Vapes nicotine salts, smokes 1-2 cigarettes per day Exercise:?walks daily- goal 6,000- 10,000 steps per day Employment:? 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 Family planning: none Headache questionnaire:? Previous work-up: no h/o head imaging. Typical headache characteristics: Prodrome symptoms: maybe some irritability Aura: none Pain intensity: 7-8/10 Location, quality, characteristics: Starts as a little ache and pressure in left anterior baptism and moves into bifrontal region. Sometimes may start as throbbing in mid-frontal region. Sometimes in the crown of head. Associated symptoms: blurry vision, photophobia, generally has phonophobia, nausea, not right in space dizziness, lightheadedness, fatigue, cognitive difficulties, left eye watering, left ear warmth, activity intolerance. Postdrome: feels drained and fatigued Triggers: skipping caffeine, lights, stress, not eating well, standing up or lifting something exacerbates headache, but also jsut trigger a headache Time of day: No specific time of day Duration and Frequency: w or wo tx 2-3 days. In the last 2 weeks, he has had 9 migraine headache days of varying intensity. How does headache impact your life? interferes w/ his ability to do his daily activities- cannot read, take his walks. Current acute medication use/interventions: Sumatriptan 25mg- helps some. Tylenol 500mg or Ibuprofen 600mg- helps some. Current preventative medication use: On metoprolol tartrate 25mg bid- for BP. Non-pharmacological interventions: heat helps. PFSH Medical History Familial hypercholesterolemia Kyphosis Opioid abuse Surgical History No pertinent past surgical history Family History Mother Substance abuse COPD (chronic obstructive pulmonary disease) Anxiety Father Brain aneurysm Paternal Grandmother Lung cancer Paternal Grandfather Liver cancer Maternal Grandmother Stomach cancer Liver cancer Other FH: mental illness Social History Housing: Assisted Living Facility Alcohol intake: former Patient Tobacco Use Status: Former Tobacco user Cigarettes Per Day: 3 e-Cigarette/Vaping Use: Currently Using Second Hand Smoke Exposure: Yes service: No Current occupational status: unemployed Current occupational exposures/hazards: No Cognitive needs: No Hearing needs: No Vision needs: Yes Physical Exam Vital Signs: Last Vital Signs Pulse 83 02/21/24 13:34 BP 132/70 02/21/24 13:34 Pulse Ox 97 02/21/24 13:34 Oxygen Delivery Method Room Air 02/21/24 13:34 BMI result Body Mass Index 43.3 Const Orientation/consciousness: patient oriented x3 HEENT Other: No palpable scalp tenderness. Head: Yes normocephalic Resp Effort & Inspection: normal respiratory effort and able to speak in complete sentences Neuro Other: Bilateral TMJ crepitus. Bilateral maseter hypertrophy. Bilateral posterior cervical tightness. Cervical ROM: full Left Spurling: normal Right Spurling: normal. General: patient oriented x3 Cranial nerves: Yes CN's II-XII intact bilaterally Cognition (Neuro): normal cognition Gait exam (Neuro): Normal gait present Motor exam (neuro): 5/5 motor strength present throughout Deep tendon reflexes (DTR's): Right triceps reflex intensity grade: 2+, Left triceps reflex intensity grade: 2+, Rt Biceps (C5, C6): 2+, Left biceps reflex intensity grade: 2+, Right brachioradialis reflex intensity grade: 2+, Left brachioradialis reflex intensity grade: 2+, Right patellar reflex intensity grade: 2+ and Left patellar reflex intensity grade: 2+ Coordination: [id number] test normal, tandem gait normal and Romberg test negative Pupils: Normal pupillary reactivity/response: bilateral Psych Appearance: grossly normal Mental Status: mental status grossly normal Speech and movement: Normal speech and movement present Affect: normal affect Attitude: cooperative Thought process: Normal thought process present Assessment & Plan Assessment & Plan (1) Morning headache: Comment: DDx migraine without aura, cervicogenic headache, possible sleep apnea, risk for secondary headache due to strong family history of symptomatic intracranial aneurysm. 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 C-spine x-ray to assess for cervicogenic etiologies of morning headache. In-lab sleep study to assess for sleep apnea. In-lab sleep study is required due to severity of obesity and chronic buprenorphine use. Brain MRI and Brain MRA to assess for secondary etiologies newer onset headaches, in setting of family history of intracranial aneurysm, with maternal grandfather having had a ruptured intracranial aneurysm. For overall headache management: Optimize good self-care, including but not limited to maintaining a healthy diet, adequate fluid intake, adequate sleep, and engaging in regular physical activity. Track headaches, especially after any treatment regimen changes. Migraine [employer]Today is one of many headache tracking apps. Information shared on non-pharmacological interventions which may help to alleviate headache attack burden. For light sensitivity: Patient may benefit from trying blue light filtering glasses, green glasses, green light therapy. = For acute headache treatment: Discussed importance of taking acute medications at the first sign of headache, however stressed importance of avoiding acute medication overuse (especially with combined headache medications). Stop sumatriptan 25 mg p.r.n.. Trial Sumatriptan 100mg tab, 1/2 - 1 tab (50-100mg) at onset of headache, may repeat in 2 hours. Max of 2 tabs (200mg) per 24 hours. May adjunct with OTC Tylenol 650mg q 4 hours, Ibuprofen 600mg q 6 hours prn. Potential adverse effects of triptans, including but not limited to nausea, fatigue, chest tightness/tingling (usually passes within a few minutes), medication overuse headaches. Previous acute migraine medication trials: None other. Acute migraine medication contraindications: None at this time For headache prevention medication: Preventative medications should be taken routinely as prescribed for best effect, it may take several weeks for full effect to take effect. Start Riboflavin 400mg qam Start Magnesium 400mg qhs Continue metoprolol 25 mg b.i.d.-ordered for hypertension Previous migraine prevention medication trials: None other Migraine prevention medication contraindications: None at this time Future considerations: Augmenting migraine prevention plan after review of neuro psych eval results. Pt seen in collaboration w/ Dr Francesca Lee. We will follow-up with patient upon review of above. Pt to follow-up in 6 months or sooner prn. Orders: Orders RT PSG in-lab sleep study Today F11.11 - Opioid abuse, in remission, F45.8 - Other somatoform disorders, R06.83 - Snoring, R51.9 - Headache, unspecified, Z68.41 - Body mass index [BMI] 40.0-44.9, adult XR cervical spine w flex/ext Today M54.2 - Cervicalgia MR head/brain wo con Today E78.01 - Familial hypercholesterolemia, H93.19 - Tinnitus, unspecified ear, I10 - Essential (primary) hypertension, R51.9 - Headache, unspecified, Z82.49 - Family history of ischemic heart disease and other diseases of the circulatory system MR angio head wo con Today E78.01 - Familial hypercholesterolemia, H93.19 - Tinnitus, unspecified ear, I10 - Essential (primary) hypertension, R51.9 - Headache, unspecified, Z82.49 - Family history of ischemic heart disease and other diseases of the circulatory system Medications: New sumatriptan succinate 50 - 100 mg orally at onset of headache, may repeat in 2 hrs PRN; max 2 tabs per day or 4 tabs/week (may take with Ibuprofen or Tylenol) 14 tabs 6RF migraine headache 30 days riboflavin (vitamin B2) 400 mg PO DAILY 30 tabs 6RF 30 days magnesium oxide may hold for loose stools 400 mg PO BEDTIME 30 tabs 6RF 30 days Discontinued sumatriptan succinate Discontinued Reason: Doctor's Order take 1 tab at onset of headache; if no relief may repeat 1 tab after at least 2 hrs; max = 4 tabs/24 hr PO 20 tabs 0RF Coding Level of Care Code New Pt Level 4 (23843) Diagnoses Morning headache R51.9 Family history of brain aneurysm Z82.49 BMI 40.0-44.9, adult Z68.41 Snoring R06.83 Bruxism F45.8 Tinnitus H93.19
[2024-02-21 13:34] VITALS: BP 132/70; PULSE 83; O2SAT 97; BMI 43.3
== END 2024-02-21 15:01 | disposition home or self-care (01) ==
PROVIDERS: PCP Nurse Practitioner Family; Visit Provider Nurse Practitioner Family
DX: R51.9 Headache, unspecified (principal); Z82.49 Family history of ischemic heart disease and other diseases of the circulatory system; Z68.41 Body mass index [BMI] 40.0-44.9, adult; R06.83 Snoring; F45.8 Other somatoform disorders; H93.19 Tinnitus, unspecified ear
CPT/HCPCS: 99204

== ENCOUNTER → 2024-02-21 13:23 | Outpatient (BNVA) | payer OTHER, SELFPAY | PROVIDERS: PCP Nurse Practitioner Family; Visit Provider Nurse Practitioner Family | DX: R51.9 Headache, unspecified (principal); R06.83 Snoring; F45.8 Other somatoform disorders; H93.19 Tinnitus, unspecified ear; Z82.49 Family history of ischemic heart disease and other diseases of the circulatory system | CPT/HCPCS: 99202 ==

== ENCOUNTER → 2024-03-13 01:33 | Outpatient (BNV) | payer OTHER, SELFPAY | PROVIDERS: PCP Internal Medicine; Visit Provider Psychiatry & Neurology Neurology | DX: R06.83 Snoring (principal); R51.9 Headache, unspecified; F45.8 Other somatoform disorders; F11.11 Opioid abuse, in remission; Z68.41 Body mass index [BMI] 40.0-44.9, adult | CPT/HCPCS: 95810 ==

== ENCOUNTER → 2024-03-13 19:30 | Outpatient (REF) | payer OTHER, SELFPAY | LOC: HO.SL 19:30 | PROVIDERS: PCP Internal Medicine; Visit Provider Nurse Practitioner Family | DX: G47.33 Obstructive sleep apnea (adult) (pediatric) (principal); R06.83 Snoring; F45.8 Other somatoform disorders | CPT/HCPCS: 95810 ==

== ENCOUNTER 2024-04-24 12:37 | Outpatient (REF) | payer OTHER, SELFPAY ==
--- NOTE | ~2024-04-24 | MR_ITS ---
EXAMINATION: MR BRAIN WITHOUT CONTRAST MR ANGIOGRAPHY HEAD WITHOUT CONTRAST CLINICAL INFORMATION: Reported family history of ischemic heart disease. Intermittent migraines with increased frequency and intensity. COMPARISON: None. TECHNIQUE: Multiplanar, multisequence imaging of the brain was obtained without intravenous administration of contrast. 3-D [id number] MR angiography is performed. Multiple 3-D reformatted images are processed on the technologist workstation. FINDINGS: No diffusion abnormalities are identified to suggest an acute or subacute infarct. The ventricles are normal in size. No mass effect or midline shift is seen. No brain parenchymal signal abnormality is noted. No extra-axial fluid collections are seen. The brainstem and cerebellum are normal. No pathologic magnetic susceptibility artifact is identified on the gradient refocused acquisition. The craniovertebral junction, marrow signal, and midline structures are normal. The major intracranial flow voids at the level of the andreafski of Siddiqi are preserved. The dural venous sinus flow voids are maintained. The mastoid air cells are well aerated. Very mild mucosal thickening and small retention cysts in the maxillary and ethmoid sinuses. Incidental 1 cm cystic-appearing lesion posterior to the right central and lateral maxillary incisors may represent a nasopalatine duct cyst. MRA of the andreafski of [place]iq[place] demonstrates a normal caliber to the anterior and posterior circulation vasculature. 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 No stenoses or occlusions are seen. No vascular malformation or aneurysms are identified. The imaged portions of the extracranial arterial vasculature appear normal. MR/MR angio head wo con IMPRESSION: Normal MRI of the brain and MRA of the head. Electronically signed by: Hector Valdez MD 05/12/2024 10:03 PM EDT
--- NOTE | ~2024-04-24 | MR_ITS ---
EXAMINATION: MR BRAIN WITHOUT CONTRAST MR ANGIOGRAPHY HEAD WITHOUT CONTRAST CLINICAL INFORMATION: Reported family history of ischemic heart disease. Intermittent migraines with increased frequency and intensity. COMPARISON: None. TECHNIQUE: Multiplanar, multisequence imaging of the brain was obtained without intravenous administration of contrast. 3-D [id number] MR angiography is performed. Multiple 3-D reformatted images are processed on the technologist workstation. FINDINGS: No diffusion abnormalities are identified to suggest an acute or subacute infarct. The ventricles are normal in size. No mass effect or midline shift is seen. No brain parenchymal signal abnormality is noted. No extra-axial fluid collections are seen. The brainstem and cerebellum are normal. No pathologic magnetic susceptibility artifact is identified on the gradient refocused acquisition. The craniovertebral junction, marrow signal, and midline structures are normal. The major intracranial flow voids at the level of the naknek of Siddiqi are preserved. The dural venous sinus flow voids are maintained. The mastoid air cells are well aerated. Very mild mucosal thickening and small retention cysts in the maxillary and ethmoid sinuses. Incidental 1 cm cystic-appearing lesion posterior to the right central and lateral maxillary incisors may represent a nasopalatine duct cyst. MRA of the nak[place] of S[place]iq[place] demonstrates a normal caliber to the anterior and posterior circulation vasculature. 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 No stenoses or occlusions are seen. No vascular malformation or aneurysms are identified. The imaged portions of the extracranial arterial vasculature appear normal. MR/MR head/brain wo con IMPRESSION: Normal MRI of the brain and MRA of the head. Electronically signed by: Hector Valdez MD 05/12/2024 10:03 PM EDT
== END 2024-04-24 12:38 | disposition home or self-care (01) ==
LOC: HO.MRI 12:37
PROVIDERS: PCP Internal Medicine; Visit Provider Nurse Practitioner Family
DX: R51.9 Headache, unspecified (principal); H93.19 Tinnitus, unspecified ear; E78.01 Familial hypercholesterolemia; I10 Essential (primary) hypertension; Z82.49 Family history of ischemic heart disease and other diseases of the circulatory system
CPT/HCPCS: 70544; 70551

== ENCOUNTER 2024-06-03 08:21 | Outpatient (REF) | payer OTHER, SELFPAY ==
[2024-06-03 08:58] LABS: Appearance Urine Clear; Color Urine Yellow; Glucose Urine UA Negative (Negative); Leukocyte Esterase Urine Negative (Negative); Nitrite Urine Negative (Negative); PH 5.5 (5.0-9.0); Specific Gravity - Urine 1.015 (1.005-1.025); Urine Blood Negative (Negative); Urine Ketones Negative (Negative); Urine Protein Negative (Neg-Trace)
[2024-06-03 09:43] LABS: Alanine Aminotransferase 40 U/L (0-40); Albumin Level 4.1 g/dL (3.5-5.0); Alkaline Phosphatase 130 U/L (39-117); Anion Gap 12 (12-20); Aspartate Amino Transferase 28 U/L (5-37); Bilirubin Direct 0.1 mg/dL (0.0-0.5); Bilirubin Total 0.3 mg/dL (0.0-1.0); Blood Urea Nitrogen 10 mg/dL (9-16); Carbon Dioxide 28 mmol/L (22-29); Chloride 107 mmol/L (96-108); Cholesterol 196 mg/dL (<200); Estimated Glomerular Filt Rate > 60; Glucose Random 105 mg/dL (60-115); HDL Cholesterol 32 mg/dL (>40); LDL Cholesterol Calculated 110 mg/dL (<100); Potassium 5.1 mmol/L (3.3-5.1); Sodium 142 mmol/L (135-145); Triglycerides 270 mg/dL (<150)
[2024-06-03 10:00] LABS: Thyroid Stimulating Hormone 1.97 uIU/mL (0.32-4.0)
== END 2024-06-03 08:22 | disposition home or self-care (01) ==
LOC: HO.LAB 08:21
PROVIDERS: PCP Internal Medicine; Visit Provider Internal Medicine
DX: I10 Essential (primary) hypertension (principal); E78.01 Familial hypercholesterolemia
CPT/HCPCS: 36415; 80048; 80061; 80076; 81003; 84443

== ENCOUNTER 2024-06-19 08:30 | Outpatient (REF) | payer OTHER, SELFPAY ==
--- NOTE | ~2024-06-19 | US_ITS ---
EXAMINATION: US ABDOMEN COMPLETE CLINICAL INFORMATION: Abnormal levels of other serum enzymes. Abnormal liver enzymes. COMPARISON: None available. TECHNIQUE: Real-time imaging of the abdominal viscera. Technically difficult study secondary to body habitus. FINDINGS: PANCREAS: The visualized pancreas appears unremarkable but the pancreatic tail is obscured by bowel gas. ABDOMINAL AORTA: The proximal, mid, and distal segments are normal in caliber. INFERIOR VENA CAVA: Visualized portions are normal. LIVER: The liver is enlarged measuring over 20 cm in cephalocaudad dimension with heterogeneously increased echogenicity. The liver contour is normal. No focal hepatic lesion. There is no intrahepatic biliary duct dilatation seen. GALLBLADDER: Normal. The gallbladder is physiologically distended without evidence of stones, sludge, polyps, wall thickening or pericholecystic fluid. COMMON BILE DUCT: Normal in caliber measuring 0.6 cm in diameter. RIGHT KIDNEY: Normal. No hydronephrosis. No renal calculi or focal parenchymal lesions. The kidney measures 11.5 cm in maximum dimension. LEFT KIDNEY: Normal. No hydronephrosis. No renal calculi or focal parenchymal lesions. The kidney measures 12.1 cm in maximum dimension. SPLEEN: The spleen is enlarged measuring 19.3 cm in maximum dimension. FREE FLUID: None. US/US abdomen complete IMPRESSION: Enlarged echogenic liver with splenomegaly. Findings are suggestive of hepatic steatosis. Electronically signed by: Jamel Aleman MD 08/16/2024 12:22 PM [facility]
== END 2024-06-19 08:31 | disposition home or self-care (01) ==
LOC: HO.US 08:30
PROVIDERS: PCP Internal Medicine; Visit Provider Internal Medicine
DX: R74.8 Abnormal levels of other serum enzymes (principal)
CPT/HCPCS: 76700

== ENCOUNTER 2024-07-16 09:08 | Outpatient (AMB) | payer OTHER, SELFPAY ==
--- NOTE | 2024-07-16 09:11 | A.OFFPC_ITS ---
Vital Signs 07/16/24 09:13 Height 5 ft 10 in Weight 303 lb 6 oz BMI 43.5 BP 110/70 Blood Pressure Location Lt brachial Position Sitting Pulse 80 Pulse Source Pulse Oximeter Pulse Oximetry (%) 97 Oxygen Delivery Method Room Air Intake Visit Reasons: 6mth f/u Intake Note: Patient is here to follow up on Hypercholesterolemia, HTN, Hypertriglycerdemia, Cervicalgia. Medical Grade Shoemaker Required: No Naturalization Examiner: Not Required per policy Accompanied by: Self / Same As Patient Allergies ivp dye Allergy (Severe, Uncoded 07/16/24 09:52) Anaphylaxis Medication List - Last Reconciled 07/16/24 by Ruy Clarke MD acetaminophen ER (Pain Relief (acetaminophen)) 650 mg PO Q8H atorvastatin 10 mg PO BEDTIME betamethasone, augmented 0.05 % topical BID buprenorphine ER (Sublocade) mg subcut buspirone 10 mg PO TID clonidine HCl 0.1 mg PO BEDTIME PRN loratadine (Allergy Relief (loratadine)) 10 mg PO DAILY magnesium oxide 400 mg PO BEDTIME 30 days metoprolol tartrate 25 mg PO BID omeprazole 20 mg PO DAILY PRN riboflavin (vitamin B2) 400 mg (4 x 100 mg) PO DAILY 90 days sertraline 200 mg PO DAILY sumatriptan succinate 50 - 100 mg orally at onset of headache, may repeat in 2 hrs PRN; max 2 tabs per day or 4 tabs/week (may take with Ibuprofen or Tylenol) 30 days Tobacco use date assessed: 07/16/24 Dental Screening Dental Screen Date: 01/10/24 HPI 6mth f/u HPI Details 39-year-old male presents to the office to discuss his chronic medical conditions. Patient will be reaching the 2 year sobriety veronica. He has quit opiate abuse and is on the tapering dose of the Sublocade. 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 Continues to see his psychiatrist and therapist. Patient continues to live at the program. [facility] Medical History Familial hypercholesterolemia Kyphosis Opioid abuse Surgical History No pertinent past surgical history Family History Mother Substance abuse COPD (chronic obstructive pulmonary disease) Anxiety Father Brain aneurysm Paternal Grandmother Lung cancer Paternal Grandfather Liver cancer Maternal Grandmother Stomach cancer Liver cancer Other FH: mental illness Social History Housing: Assisted Living Facility Alcohol intake: former Patient Tobacco Use Status: Former Tobacco user Cigarettes Per Day: 3 e-Cigarette/Vaping Use: Currently Using Second Hand Smoke Exposure: Yes service: No Current occupational status: unemployed Current occupational exposures/hazards: No Cognitive needs: No Hearing needs: No Vision needs: Yes Questionnaire Thrive Questionnaire Date Thrive assessed: 09/20/23 AUDIT C Alcohol Use Questionnaire (AUDIT-C) 3. How often do you have six or more drinks on one occasion?: Never Total Score: 0 MAX-7 AMB Questionnaire MAX-7 Date MAX - 7 assessed: 09/20/23 Source: Developed by Drs. Lazaro Palomares, Allyssa Orellana, Deangelo Ritchie and colleagues, with an educational ankit from [employer]. Physical exam (Primary Care) Vital Signs: Last Vital Signs Pulse 80 07/16/24 09:13 BP 110/70 07/16/24 09:13 Pulse Ox 97 07/16/24 09:13 Oxygen Delivery Method Room Air 07/16/24 09:13 BMI result Body Mass Index 43.5 Tobacco/Smoking Status: Tobacco use Status Tobacco use date assessed 07/16/24 07/16/24 09:17 Patient Tobacco Use Status Former Tobacco user 07/16/24 09:17 Tobacco use type 01/10/24 10:36 e-Cigarette/Vaping Use Currently Using 07/16/24 09:17 Thrive Assessment: Date of Thrive Assessment Date Thrive assessed 09/20/23 07/16/24 09:17 Const General: cooperative and healthy appearing Nutritional Appearance: well nourished Orientation/consciousness: patient oriented x3 Limitations: no limitations HENMT Head: Yes normal to inspection Eyes General: appearance normal, both eyes and all related structures Neck Neck: Yes normal visual inspection Chest Chest palpation & inspection: normal palpation of entire chest wall Resp Effort & Inspection: normal respiratory effort Neuro General: patient oriented x3 Coding Level of Care Code Est Pt Level 4 (46226) Complex EM visit Add On G2211 Diagnoses Opioid abuse F11.10 Opioid abuse, in remission F11.11 Assessment & Plan Assessment & Plan (1) Opioid abuse: Code(s): F11.10 - Opioid abuse, uncomplicated Category: Medical Plan: See below (2) Opioid abuse, in remission: Code(s): F11.11 - Opioid abuse, in remission Category: Medical Plan: Patient was congratulated for staying clean. I encouraged him to continue his therapy. Repeat blood work shows improving liver function tests. Ultrasound of the abdomen, official readings are still pending.
[2024-07-16 09:13] VITALS: BP 110/70; PULSE 80; O2SAT 97; BMI 43.5
== END 2024-07-16 09:48 | disposition home or self-care (01) ==
PROVIDERS: PCP Internal Medicine; Visit Provider Internal Medicine
DX: F11.10 Opioid abuse, uncomplicated (principal); F11.11 Opioid abuse, in remission

== ENCOUNTER → 2024-07-16 09:08 | Outpatient (BNVA) | payer OTHER, SELFPAY | PROVIDERS: PCP Internal Medicine; Visit Provider Internal Medicine | DX: F11.10 Opioid abuse, uncomplicated (principal); F11.11 Opioid abuse, in remission | CPT/HCPCS: 99212 ==

== ENCOUNTER 2025-01-29 10:19 | Outpatient (AMB) | payer OTHER, SELFPAY ==
--- NOTE | 2025-01-29 10:28 | A.OFFPC_ITS ---
Vital Signs 01/29/25 10:29 Height 5 ft 10 in Weight 259 lb 8 oz BMI 37.2 BP 140/68 H Blood Pressure Location Lt brachial Position Sitting Pulse 96 Pulse Source Pulse Oximeter Temp 97.1 F Temp Source Temporal Artery Scan Pulse Oximetry (%) 96 Oxygen Delivery Method Room Air Intake Visit Reasons: 6 month f/u Intake Note: Patient is here to follow up on Hypercholesterolemia, HTN, LDDD. Machined Parts Quality Inspector Required: No Parts Data Writer: Not Required per policy Accompanied by: Self / Same As Patient Allergies ivp dye Allergy (Severe, Uncoded 01/29/25 10:29) Anaphylaxis Tobacco use date assessed: 01/29/25 Dental Screening Dental Screen Date: 01/29/25 Did you have a dental visit in the last 12 months?: No Did you have a dental problem in the last 6 months where you did not have access to dental care?: No Was dental information given to patient?: Patient declined [facility] Medical History Familial hypercholesterolemia Kyphosis Opioid abuse Surgical History No pertinent past surgical history Family History Mother Substance abuse COPD (chronic obstructive pulmonary disease) Anxiety Father Brain aneurysm Paternal Grandmother Lung cancer Paternal Grandfather Liver cancer Maternal Grandmother Stomach cancer Liver cancer Other FH: mental illness Social History Housing: Assisted Living Facility Alcohol intake: former Patient Tobacco Use Status: Former Tobacco user Cigarettes Per Day: 3 e-Cigarette/Vaping Use: Currently Using Second Hand Smoke Exposure: Yes service: No Current occupational status: unemployed Current occupational exposures/hazards: No Cognitive needs: No Hearing needs: No Vision needs: Yes Questionnaire PHQ-9 Over the last 2 weeks, how often have you been bothered by any of the following problems? 1. Little interest or pleasure in doing things: not at all 2. Feeling down, depressed, or hopeless: several days 3. Trouble falling or staying asleep, or sleeping too much: more than half the days 4. Feeling tired or having little energy: more than half the days 5. Poor appetite or overeating: not at all 6. Feeling bad about yourself - or that you are a failure or have let yourself or your family down: several days 7. Trouble concentrating on things, such as reading the newspaper or watching television: several days 8. Moving or speaking so slowly that other people could have noticed. Or the opposite - being so fidgety or restless that you have been moving around a lot more than usual: not at all 9. Thoughts that you would be better off or of hurting yourself in some way: not at all Total score: 7 Depression Screening Interpretation: Positive Depression Screening Done: Yes Source: Developed by Drs. Lazaro Palomares, Allyssa Orellana, Deangelo Ritchie and colleagues, with an educational ankit from [employer]. Thrive Questionnaire Date Thrive assessed: 01/29/25 I am a: Patient What is your living situation today?: I have a steady place to live Within the past 12 months, did the food you bought not last and you didn't have the money to get more?: Never true Within the past 12 months, did you worry whether your food would run out before you got money to buy more?: Never true Do you have trouble paying for medicines?: No Do you have trouble getting transportation to medical appointments?: Yes Do you have trouble paying your heating and electricity bill?: No Do you have trouble taking care of your child, family member or friend?: No Do you have trouble with day-to-day activities such as bathing, preparing meals, shopping, managing finances, etc.?: No Are you currently unemployed and looking for a job?: No Are you interested in more education?: Yes Please select the resources that you would like help with: None Currently or been in a relationship where the following occur: No concerns reported THRIVE Score: 1 AUDIT C Alcohol Use Questionnaire (AUDIT-C) 1. How often do you have a drink containing alcohol?: Never 3. How often do you have six or more drinks on one occasion?: Never Total Score: 0 MAX-7 AMB Questionnaire MAX-7 Date MAX - 7 assessed: 01/29/25 Feeling nervous, anxious, or on edge: 2 = More than half the days Not being able to stop or control worryin = Several days Worrying too much about different things: 2 = More than half the days Trouble relaxin = Several days Being so restless that it is hard to sit still: 1 = Several days Becoming easily annoyed or irritable: 1 = Several days Feeling afraid as if something awful might happen: 0 = Not at all Total MAX-7 score (0-4 normal; 5-9 mild; 10-14 moderate; 15-21 severe): 8 Source: Developed by Drs. Lazaro Palomares, Allyssa Orellana, Deangelo Ritchie and colleagues, with an educational ankit from [employer]. Physical exam (Primary Care) Vital Signs: Last Vital Signs Temp 97.1 F 01/29/25 10:29 Pulse 96 01/29/25 10:29 BP 140/68 H 01/29/25 10:29 Pulse Ox 96 01/29/25 10:29 Oxygen Delivery Method Room Air 01/29/25 10:29 BMI result Body Mass Index 37.2 Tobacco/Smoking Status: Tobacco use Status Tobacco use date assessed 01/29/25 01/29/25 10:35 Patient Tobacco Use Status Former Tobacco user 01/29/25 10:35 Tobacco use type 01/10/24 10:36 e-Cigarette/Vaping Use Currently Using 01/29/25 10:35 PHQ-9: PHQ-9 Score PHQ-9: Total score 7 01/29/25 10:35 Depression Screening Interpretation: Positive Thrive Assessment: Date of Thrive Assessment Date Thrive assessed 01/29/25 01/29/25 10:35 Currently or been in a relationship where the following occur: No concerns reported Coding Level of Care Code Est Pt Level 4 (77050) Complex EM visit Add On G2211 Diagnoses Low back pain M54.50 Assessment & Plan Assessment & Plan (1) Low back pain: Code(s): M54.50 - Low back pain, unspecified Plan: History of Present Illness - The patient is a 40-year-old male presenting with mechanical low back pain. - The pain, described as a pinch, occurs intermittently with certain movements, notably when standing. - Episodes have increased from once every four to five months to daily occurrences, associated with a popping sensation and severe pain. - Previously managed with heat therapy; recent episodes are more frequent. - History of hypertension and hyperlipidemia; current management includes medications. - Significant weight loss noted due to Zepbound injections, with ongoing management of obesity. 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 - Reports significant weight loss following enrollment in a weight management program. - Participates in [employer], resulting in a loss of approximately 45 to 48 pounds. - Current medication for weight management is Zepbound, administered weekly. Review of Systems - Musculoskeletal: Reports episodic low back pain with specific movements. De nies continuous pain. - Medication Use: Denies current use of opioids and buprenorphine. - General: Reports significant weight loss with medication-assisted weight management. Physical Exam General: Cooperative and healthy appearing Nutritional Appearance: Well nourished Orientation/consciousness: Patient oriented x3 Limitations: No limitations Head: Normal to inspection General: Appearance normal, both eyes and all related structures Neck: Normal visual inspection Chest: Normal palpation of entire chest wall Respiratory: N ormal respiratory effort Neurology: Patient oriented x3, discomfort on the right internal rotator, external rotation of the hip. Results Plan 1. Mechanical Low Back Pain - Use heating pad and start physical therapy for muscle tightness. 2. Hypertension - Maintain current medication regimen and monitor blood pressure. 3. Hyperlipidemia - Continue current medications and dietary adherence. 4. Obesity - Continue Zepbound injections for weight management. - Conduct blood work to assess progress. Discussion Notes I discussed the patient's mechanical low back pain and the increased frequency of episodes. We agreed on initiating physical therapy to address muscle tightness and improve mobility. The patient is advised to continue using a heating pad as it has been effective in the past. We reviewed his current management of hypertension and hyperlipidemia, emphasizing the importance of medication adherence. The patient is on Zepbound for weight management, which has been effective, and we plan to conduct blood work to evaluate the impact of weight loss and medication. A follow-up appointment is scheduled in six months, with instructions to complete blood work prior to the visit. Patient Instructions - Use a heating pad for back pain as needed. - Start physical therapy as prescribed. - Continue taking medications for blood pressure and cholesterol. - Keep using Zepbound for weight management. - Get blood work done before the next visit. - Schedule a follow-up appointment in six months.
[2025-01-29 10:29] VITALS: BP 140/68; PULSE 96; TEMP 36.2; O2SAT 96; BMI 37.2
== END 2025-01-29 11:01 | disposition home or self-care (01) ==
LOC: HO.HMCH 10:19
PROVIDERS: PCP Internal Medicine; Visit Provider Internal Medicine
DX: M54.50 Low back pain, unspecified (principal)

== ENCOUNTER → 2025-01-29 10:19 | Outpatient (BNVA) | payer OTHER, SELFPAY | PROVIDERS: PCP Internal Medicine; Visit Provider Internal Medicine | DX: M54.50 Low back pain, unspecified (principal); I10 Essential (primary) hypertension; E78.5 Hyperlipidemia, unspecified; E66.9 Obesity, unspecified; Z68.37 Body mass index [BMI] 37.0-37.9, adult | CPT/HCPCS: 99212 ==

== ENCOUNTER 2025-08-12 08:21 | Outpatient (REF) | payer OTHER, SELFPAY ==
[2025-08-12 09:22] LABS: Hematocrit 43.8 % (42.0-52.0); Hemoglobin 14.8 g/dl (14.0-18.0); Mean Corpuscular HGB Conc 33.8 g/dl (31.0-36.0); Mean Corpuscular Hemoglobin 28.6 pg (27.0-33.0); Mean Corpuscular Volume 84.6 fL (80.0-98.0); NRBC Abs Auto 0.000 X10*3/uL (0.0-0.012); NRBC Pct Auto 0.0 /100WBC (0.0-0.2); Platelet Count 285 X10*3/uL (160-400); Red Blood Count 5.18 X10*6/uL (4.60-5.80); White Blood Count 8.1 X10*3/uL (4.8-10.8)
[2025-08-12 09:44] LABS: Appearance Urine Clear; Glucose Urine UA Negative (Negative); PH 6.0 (5.0-9.0); Specific Gravity - Urine 1.020 (1.005-1.025); UMIC TRIGGER UA YES
[2025-08-12 10:11] LABS: Alanine Aminotransferase 23 U/L (0-40); Albumin Level 4.4 g/dL (3.5-5.0); Alkaline Phosphatase 119 U/L (39-117); Anion Gap 9 (12-20); Aspartate Amino Transferase 22 U/L (5-37); Blood Urea Nitrogen 6 mg/dL (9-16); Calcium 10.1 mg/dL (8.4-10.2); Carbon Dioxide 30 mmol/L (22-29); Chloride 108 mmol/L (96-108); Cholesterol 188 mg/dL (<200); Estimated Glomerular Filt Rate > 60; HDL Cholesterol 35 mg/dL (>40); Potassium 4.2 mmol/L (3.3-5.1); Sodium 143 mmol/L (135-145); Total Protein 7.5 g/dL (6.5-8.0); Triglycerides 284 mg/dL (<150)
[2025-08-12 10:15] LABS: Thyroid Stimulating Hormone 1.25 uIU/mL (0.32-4.0)
== END 2025-08-12 08:22 | disposition home or self-care (01) ==
LOC: HO.LAB 08:21
PROVIDERS: PCP Internal Medicine; Visit Provider Internal Medicine
DX: I10 Essential (primary) hypertension (principal)
CPT/HCPCS: 36415; 80048; 80061; 80076; 81001; 83036; 84153; 84443; 85027

== ENCOUNTER 2025-08-13 13:25 | Outpatient (AMB) | payer OTHER, SELFPAY ==
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
[2025-08-13 13:35] VITALS: BP 122/90; PULSE 97; TEMP 36.3; O2SAT 98; BMI 34.3
== END 2025-08-13 13:56 | disposition home or self-care (01) ==
LOC: HO.HMCH 13:25
PROVIDERS: PCP Internal Medicine; Visit Provider Internal Medicine
DX: I10 Essential (primary) hypertension (principal)

== ENCOUNTER → 2025-08-13 13:25 | Outpatient (BNVA) | payer OTHER, SELFPAY | PROVIDERS: PCP Internal Medicine; Visit Provider Internal Medicine | DX: Z71.2 Person consulting for explanation of examination or test findings (principal); I10 Essential (primary) hypertension | CPT/HCPCS: 99212 ==

== ENCOUNTER 2025-08-22 12:20 | Emergency (ER) | payer OTHER, SELFPAY ==
--- NOTE | ~2025-08-22 | XR_ITS ---
CLINICAL HISTORY: fall, pain 3 views lumbar spine Comparison: DX/SR - XR LUMBAR SPINE 2-3 VIEWS - 05/10/23 12:56 EDT Findings: Grade 1 spondylolisthesis at L2-L3, L3-L4, L4-L5 and L5-S1, without change. There are pars defects at L5. There is no vertebral body fracture. Multilevel degenerative disc disease, most pronounced at L2-L3 and L4-L5, similar to the prior study. IMPRESSION: There are pars defects at L5, without change. This document has been electronically signed by: Rosanna Castrejon MD on 08/22/2025 14:58:49
--- NOTE | ~2025-08-22 | XR_ITS ---
CLINICAL HISTORY: fall, pain 3 views sacrum and coccyx Comparison: None provided Findings There are pars defects at L5. There is no fracture of the sacrum or coccyx. No significant degenerative change. No erosions. IMPRESSION: There are pars defects at L5. This document has been electronically signed by: Rosanna Castrejon MD on 08/22/2025 15:00:00
[2025-08-22 13:35] VITALS: BP 136/66; PULSE 82; RESP 18; TEMP 36.3; O2SAT 97; BMI 33.4
--- NOTE | 2025-08-22 13:35 | ED.FALL ---
HPI - Fall General Chief Complaint: Back Pain/Injury Stated Complaint: fell, low back pain, popping sensation Time Seen by Provider: 08/22/25 15:01 Source: patient Mode of arrival: ambulatory Limitations: no limitations History of Present Illness ED Provider: Trinity Gale APRN HPI Narrative: 40 yo male with PMH of HTN, former opiate user, migraines, here with lower back pain s/p fall 6 days ago. Denies hitting head or LOC. Continued pain since then. Graham a popping sensation in the back. Has history of thoracic kyphosis, DDD in back. no radiation of pain. No numbness in the groin. No bowel or bladder incontinence. No fevers or chills. Patient arrives ambulatory. Taking [id number] Motrin and Tylenol with continued pain. Related Data Home Medications ?Medication ?Instructions ?Recorded ?Confirmed acetaminophen 650 mg 650 mg PO Q8H 01/19/23 08/13/25 tablet,extended release (Pain Relief (acetaminophen)) clonidine HCl 0.1 mg tablet 0.1 mg PO BEDTIME PRN 01/19/23 08/13/25 buspirone 10 mg tablet 10 mg PO TID 09/20/23 08/13/25 betamethasone, augmented 0.05 % topical BID 01/10/24 08/13/25 lotion tirzepatide (weight loss) 12.5 12.5 mg subcut QWEEK 01/29/25 08/13/25 mg/0.5 mL subcutaneous pen injector (Zepbound) sertraline 50 mg tablet 50 mg PO DAILY 08/13/25 08/13/25 Previous Rx's ?Medication ?Instructions ?Recorded sumatriptan succinate 100 mg tablet 50 - 100 mg (0.5 - 1 x 100 mg) PO 03/10/25 .COMPLEX PRN migraine headache 30 days #14 tabs magnesium oxide 400 mg (241.3 mg 400 mg PO BEDTIME 30 days #30 tabs 05/22/25 magnesium) tablet riboflavin (vitamin B2) 100 mg 400 mg (4 x 100 mg) PO ONCE #360 06/19/25 tablet (Vitamin B-2) tabs atorvastatin 10 mg tablet 10 mg PO BEDTIME #90 tabs 08/14/25 loratadine 10 mg tablet (Allergy 10 mg PO DAILY #90 tabs 08/14/25 Relief (loratadine)) omeprazole 20 mg capsule,delayed 20 mg PO DAILY PRN gastric reflux 08/14/25 release #90 caps metoprolol tartrate 25 mg tablet 25 mg PO BID #180 tabs 08/19/25 cyclobenzaprine 10 mg tablet 10 mg PO TID PRN muscle spasm #15 08/22/25 tabs lidocaine 5 % topical patch 1 patch topical DAILY #15 ea 08/22/25 (Lidoderm) naproxen 500 mg tablet 500 mg PO BID PRN pain #30 tabs 08/22/25 Allergies Allergy/AdvReac Type Severity Reaction Status Date / Time ivp dye Allergy Severe Anaphylaxis Uncoded 08/22/25 13:38 Review of Systems Review of Systems: Yes all other systems are reviewed and are negative Constitutional: Constitutional: Reports no additional constitutional complaints, Denies body ache(s), Denies chills, Denies fever(s), Denies headache(s) and Denies weakness Eyes: Eyes: Reports no additional eye complaints and Denies change in vision ENT: Reports system reviewed and no additional complaints, except as documented, Denies dizziness, Denies headache(s), Denies nasal congestion, Denies nasal discharge and Denies neck pain Cardiovascular: Cardiovascular: Reports no additional cardiovascular complaints, Denies chest pain, Denies leg edema and Denies dyspnea Respiratory: Respiratory: Reports no additional respiratory complaints, Denies cough and Denies dyspnea Gastrointestinal: Gastrointestinal: Reports no additional gastrointestinal complaints, Denies abdominal pain, Denies diarrhea, Denies nausea and Denies vomiting Genitourinary: Genitourinary: Denies urinary incontinence Musculoskeletal: Musculoskeletal: Reports no additional musculoskeletal complaints, Reports back pain, Denies arthralgias, Denies joint swelling, Denies neck pain, Denies numbness and Denies tingling Integumentary/Breasts: Skin/Breast: Reports system reviewed and no additional complaints, except as docu and Denies rash Neurologic: Reports system reviewed and no additional complaints, except as documented, Denies Abnormal speech present, Denies dizziness, Denies headache(s), Denies numbness, Denies tingling and Denies weakness PMFSH Past Medical History Attestation statement: The following information was validated with the patient. Source: old records reviewed and nursing notes reviewed Medical History Familial hypercholesterolemia Kyphosis Opioid abuse Surgical History No pertinent past surgical history Family History Family History Mother Substance abuse COPD (chronic obstructive pulmonary disease) Anxiety Father Brain aneurysm Paternal Grandmother Lung cancer Paternal Grandfather Liver cancer Maternal Grandmother Stomach cancer Liver cancer Other FH: mental illness Social History Social History Housing: Assisted Living Facility Alcohol intake: former Patient Tobacco Use Status: Former Tobacco user Cigarettes Per Day: 3 e-Cigarette/Vaping Use: Currently Using Second Hand Smoke Exposure: Yes Advance Directives: No Advance Directives Information Provided: No Do you have a plan to hurt others: No Plan service: No Current occupational status: unemployed Current occupational exposures/hazards: No Cognitive needs: No Hearing needs: No Vision needs: Yes Physical Exam Vital Signs: Vital Signs: Last Vital Signs Temp 97.3 F 08/22/25 15:16 Pulse 82 08/22/25 15:16 Resp 18 08/22/25 15:16 BP 136/66 08/22/25 15:16 Pulse Ox 97 08/22/25 15:16 O2 Del Method Room Air 08/22/25 15:16 BMI result Body Mass Index 33.4 Const: General: cooperative, healthy appearing, comfortable and no acute distress Orientation/consciousness: patient oriented x3 Limitations: no limitations HEENT: Head: Yes normal to inspection Ears: hearing grossly normal bilaterally General nose exam: Normal external nose present Face and sinus: Yes normal facial exam Mouth: Normal oral and palatal mucosa present Throat: Yes posterior oropharynx normal Eyes: General: appearance normal, both eyes and all related structures Pupils: Equal, round and reactive pupils present Neck: Neck: Yes normal visual inspection Chest: Chest palpation & inspection: normal inspection of the chest Resp: Effort & Inspection: normal respiratory effort Auscultation: clear to auscultation bilaterally Cardio: Rate: regular rate Rhythm: regular rhythm Peripheral pulses: Peripheral pulses 2+ throughout GI: Inspection: Yes normal to inspection Palpation (GI): Soft to palpation and nontender Auscultation: normal bowel sounds : General: Yes no CVA tenderness Back/Spine/Pelvis: Other: There is tenderness of the soft tissue of the lumbar bilaterally worsened on the left side. There is no midline tenderness. There is no step-offs. There is no deformities. Pain is worsened with flexion and extension of the lumbar spine. Back: no CVA tenderness Thoracic/Lumbar Spine: thoracic and lumbar spine normal to inspection Skin: General skin exam: no rashes or lesions noted Neuro: General: patient oriented x3, moves all extremities, no focal motor deficits and normal sensation to monofilament Cranial nerves: Yes CN's II-XII intact bilaterally, Yes Equal, round and reactive pupils present, Yes Bilaterally intact EOM present, Yes Nystagmus not present, Yes Normal facial strength present and Yes Midline tongue present Cognition (Neuro): normal cognition Speech: No Abnormal speech present Gait exam (Neuro): Normal gait present Motor exam (neuro): 5/5 motor strength present throughout Sensory Exam: Normal double simultaneous stimulation for sensation Deep tendon reflexes (DTR's): Right patellar reflex intensity grade: 2+ and Left patellar reflex intensity grade: 2+ Extrem: General: Yes normal to inspection Course Course Course Narrative: Trinity Gale [employer] 08/22 3861 This is a rapid medical exam. Deferred additonal HPI, ROS, PE to primary provider. 40 yo male with PMH of HTN, former opiate user, migraines, here with lower back pain s/p fall 6 days ago. Denies hitting head or LOC. Has history of thoracic kyphosis, DDD in back. Will obtain x-rays VSS Medical Decision Making Medical Decision Making MDM Narrative: 40 yo male with PMH of HTN, former opiate user, migraines, here with lower back pain s/p fall 6 days ago. Denies hitting head or LOC. Continued pain since then. Graham a popping sensation in the back. Has history of thoracic kyphosis, DDD in back. no radiation of pain. No numbness in the groin. No bowel or bladder incontinence. No fevers or chills. Patient arrives ambulatory. Taking [id number] Motrin and Tylenol with continued pain. There is tenderness of the soft tissue of the lumbar bilaterally worsened on the left side. There is no midline tenderness. There is no step-offs. There is no deformities. Pain is worsened with flexion and extension of the lumbar spine. No overt neurological deficits or red flag symptoms Will check x-rays due to trauma history Differential Diagnosis Differential Diagnoses: The differential diagnosis associated with the presentation includes low suspicion for epidural abscess, cauda equina, cord compression, malignancy, dissection, ACS, pyelonephritis, renal colic based on clinical exam, HPI. Admission/Observation Consideration of admission/observation: Escalation of care including admission/observation considered low suspicion for epidural abscess, cauda equina, cord compression, malignancy, dissection, ACS, pyelonephritis, renal colic Requiring advanced imaging Lab Data MDM Lab Attestation statement: I reviewed the patient's lab results. Independent Interpretation I performed an independent interpretation of an: Plain X-Ray Interpretation: I independently viewed the x-ray and agree with the radiology report Radiology Impression Discussion of test interpretation with radiology: I have reviewed the radiologist's reading. Radiologist Impression: [address] [address] XRay Report Signed Patient: Roderick Bryant MR#: [id number] : 1985 Acct:[id number] Age/Sex: 40 / M ADM Date: 08/22/25 Loc: .ED Attending Dr: Ordering Physician: Trinity Gale NP Date of Service: 08/22/25 Procedure(s): XR sacrum coccyx min 2V Accession Number(s): [id number] cc: Trinity Gale NP; Ruy Clarke MD~ Reason for Exam: fall, pain CLINICAL HISTORY: fall, pain 3 views sacrum and coccyx Comparison: None provided Findings There are pars defects at L5. There is no fracture of the sacrum or coccyx. No significant degenerative change. No erosions. IMPRESSION: There are pars defects at L5. This document has been electronically signed by: Rosanna Castrejon MD on 08/22/2025 15:00:[address] [address] XRay Report Signed Patient: Roderick Bryant MR#: [id number] : 1985 Acct:[id number] Age/Sex: 40 / M ADM Date: 08/22/25 Loc: .ED Attending Dr: Ordering Physician: Trinity Gale NP Date of Service: 08/22/25 Procedure(s): XR lumbar spine 2-3V Accession Number(s): [id number] cc: Trinity Gale NP; Ruy Clarke MD~ Reason for Exam: fall, pain CLINICAL HISTORY: fall, pain 3 views lumbar spine Comparison: DX/SR - XR LUMBAR SPINE 2-3 VIEWS - 05/10/23 12:56 EDT Findings: Grade 1 spondylolisthesis at L2-L3, L3-L4, L4-L5 and L5-S1, without change. There are pars defects at L5. There is no vertebral body fracture. Multilevel degenerative disc disease, most pronounced at L2-L3 and L4-L5, similar to the prior study. IMPRESSION: There are pars defects at L5, without change. This document has been electronically signed by: Rosanna Castrejon MD on 08/22/2025 14:58:49 Tests considered The following testing was considered but not selected: see above Prescription Management I considered prescription management with: Pain Medication Discharge Plan Discharge Clinical Impression: Back pain Patient Disposition: Home, Self-Care Instructions: Back Pain (ED) Additional Instructions: heat or ice Gentle stretching No heavy lifting or bending Follow-up with primary care doctor for any continued symptoms as you may need additional imaging return to the emergency room for any incontinence of urine or stool, numbness in the groin, fever greater than 100.4 Prescriptions: New cyclobenzaprine 10 mg tablet 10 mg PO TID PRN (Reason: muscle spasm) Qty: 15 0RF lidocaine [Lidoderm] 5 % adhesive patch,medicated 1 patch topical DAILY Qty: 15 0RF Rx Instructions: leave on most painful area for up to 12 hrs naproxen 500 mg tablet 500 mg PO BID PRN (Reason: pain) Qty: 30 0RF No Action sumatriptan succinate 100 mg tablet 50 - 100 mg PO .COMPLEX MDD 100mg PRN (Reason: migraine headache) 30 Days Qty: 14 6RF Rx Instructions: 50 - 100 mg orally at onset of headache, may repeat in 2 hrs PRN; max 2 tabs per day or 4 tabs/week (may take with Ibuprofen or Tylenol) magnesium oxide 400 mg (241.3 mg magnesium) tablet 400 mg PO BEDTIME 30 Days Qty: 30 11RF Rx Instructions: may hold for loose stools riboflavin (vitamin B2) [Vitamin B-2] 100 mg tablet 400 mg PO ONCE Qty: 360 6RF atorvastatin 10 mg tablet 10 mg PO BEDTIME Qty: 90 1RF loratadine [Allergy Relief (loratadine)] 10 mg tablet 10 mg PO DAILY Qty: 90 1RF omeprazole 20 mg capsule,delayed release(DR/EC) 20 mg PO DAILY PRN (Reason: gastric reflux) Qty: 90 2RF metoprolol tartrate 25 mg tablet 25 mg PO BID Qty: 180 3RF buspirone 10 mg tablet 10 mg PO TID betamethasone, augmented 0.05 % lotion topical BID acetaminophen [Pain Relief (acetaminophen)] 650 mg tablet extended release 650 mg PO Q8H clonidine HCl 0.1 mg tablet 0.1 mg PO BEDTIME PRN Zepbound 12.5 mg/0.5 mL pen injector 12.5 mg subcut QWEEK Patient Comments: Prescribe by Velia Pham [employer] sertraline 50 mg tablet 50 mg PO DAILY Interventions: ED Discharge Assessment Last Done: 08/22/25 15:16 Discharge Date/Time: 08/22/25 15:17 Print Language: Kuwaiti
[2025-08-22 15:16] VITALS: BP 136/66; PULSE 82; RESP 18; TEMP 36.3; O2SAT 97
--- OUTSIDE RECORDS SUMMARY | 2025-08-22 15:18 | XMS_ITS | Clinical Summary ---
Author Organization [facility] Address [address] [place] [id number] Phone Care Team Providers Care Jewel Hole Cornerer Name Role Phone Han Bond MD Primary Care Provider Allergies Active Allergy Reactions Criticality Noted Date Comments Gadolinium-Containing Contrast Media Anaphylaxis,Hives,Shortness Of Breath High 09/13/2024 Medications albuterol 90 mcg/actuation inhalerIndicatio ns:Acute bronchitis, unspecified organism Inhale 2 puffs into the lungs every 6 (six) hours as needed for wheezing. 8 g 10/21/2024 Active Active Problems No known active problems Social History Tobacco Use Types Packs/Day Years Used Date Smoking Tobacco: Never Assessed Sex and Gender Information Value Date Recorded Sex Assigned at Male 09/13/2024 12:35 PM EST Legal Sex Male 12:31 PM EST Gender Identity Male 09/13/2024 12:35 PM EST Sexual Orientation Lesbian or Menendez 09/13/2024 12 :35 PM EST Plan of Treatment Not on file Medical Devices Not on file Insurance [facility] [employer] [place] [facility] [place] [facility] [place] [facility] [place] [facility]CO Care Teams Jewel Hole Cornerer Relationship Specialty Start Date End Date Han Bond MD PCP - General 09/13/24 Additional Source Comments The information contained in this document represents components of the legal health record. It is not the complete legal health record.[facility]
--- OUTSIDE RECORDS SUMMARY | 2025-08-22 15:18 | XMS_ITS | Data Portability ---
Author Organization [facility], [address] Address [address] [place] [address] Care Team Providers Care Mineral Industry Teacher Name Role Phone SADI, KARTIK Primary Care Provider Assessment No assessment recorded. Plan of Treatment Reminders Order Date Submit Date Provider Last Modified By Organization Details Last Modified Time Details Appointments None recorded. Lab None recorded. Referral None recorded. Procedures None recorded. Surgeries None recorded. Imaging None recorded. Medication Orders ivermectin 3 mg tablet 2023 024 [facility]armacy #[id number], [address] [place], [address], 15:49:28 diclofenac sodium 75 mg tablet,sam yed release 2022 024 [facility]armacy #[id number], [address] [place], [address], 15:13:46 Patient TargetsNo targets recorded. Patient Instructions Encounter Date Encounter Id Patient Instructions Last Modified By Organization Details Last Modified Time 09/26/2023 [id number] scabies: care instructions [email or web address] Not available 09/26/2023 15:30:09 Patient was evaluated by the Physician Wardrobe Attendant using AV technology. This type of exam does not replace a need for an in-person evaluation if symptoms worsen or do not improve after 24-48 hours Not available 09/26/2023 15:21:10 Reason for Referral None Reported. Problems Name Problem SNOMED Code Status Onset Date Resolution Date Notes Provider Name and Address Organization Details Recorded Time Hypertensive disorder 38917287 Active 2022 JANAK GOODHIND null, [place] - [facility] 3 18:14:46 Depressive disorder 79616526 Active 2022 JANAK GABY null, [place] - [facility] 3 18:14:53 Anxiety 30416533 Active 2022 JANAK GREENWOODOVIDIO null, [place] - [facility] 3 18:15:00 Post-traumatic stress disorder 72009310 Active 2022 JANAK GABY null, [place] - [facility] 3 18:15:15 Degeneration of intervertebral disc 51092380 Active 2022 JANAK GRIFFIN null, [place] - [facility] 3 18:15:25 Gastroesophage al reflux disease 500147729 Active 2022 JANAK GRIFFIN null, [place] - [facility] 3 18:15:40 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 Procedures Surgical History Date Name Laterality Status Provider Name and Address Organization Details Recorded Time 4 Virtual Visit completed IVANNA PADGETT [address] [facility] [place], [place], [address], [place] - [facility] 09/26/2023 15:10:08 Imaging Results None recorded. Procedure Notes None recorded. Medical Equipment None Reported. Allergies Allergen ID Allergen Name Allergen Category Reaction Reaction Severity Criticality Documentation Date Start Date Code Code System Note Provider Name and Address Organization Details Recorded Time 170990 iodine medicatio n Not available Not available Not available 11/03/2022 5933 RxNorm JANKA GREENWOODOVIDIO marianela, [place] - [facility] 3 18:12:35 Medications Name Sig Start Date Stop Date Status Note LastModified by Organization Details LastModified Time buspirone 5 mg tablet active Not Available Not Available No t Available ivermectin 3 mg tablet TAKE 5 TABLETS EVERY WEEK BY ORAL ROUTE FOR 14 DAYS. active Not Available Not Available No t Available clonidine HCl 0.1 mg tablet active Not Available Not Available Not Available prednisone 10 mg tablet active Not Available Not Available Not Available trazodone 50 mg tablet active Not Available Not Available Not Available atorvastati n 10 mg tablet active Not Available Not Available Not Available Stool Softener 100 mg capsule active Not Available Not Available Not Available benzonatate 200 mg capsule active Not Available Not Available Not Available senna 8.6 mg tablet active Not Available Not Available No t Available sumatriptan 25 mg tablet active Not Available Not Available Not Available prednisone 20 mg tablet active Not Available Not Available Not Available sertraline 100 mg tablet active Not Available Not Available Not Available amoxicillin 500 mg tablet active Not Available Not Available Not Available betamethaso ne, augmented 0.05 % lotion active Not Available Not Available Not Available Zoloft 50 mg tablet Take 1 tablet every day by oral route. active Not Available Not Available No t Available triamcinolo ne acetonide 0.1 % topical ointment active Not Available Not Available Not Available buspirone 10 mg tablet Take 1 tablet 3 times a day by oral route. active Not Available Not Available No t Available omeprazole 20 mg capsule,del ayed release active Not Available Not Available Not Available diclofenac sodium 75 mg tablet,sam yed release Take 1 tablet twice a day by oral route for 10 days. 09/26 completed Not Available Not Available Not Available hydrocortis one 2.5 % topical ointment active Not Available Not Available Not Available loratadine 10 mg tablet active Not Available Not Available Not Available metoprolol tartrate 25 mg tablet active Not Available Not Available No t Available loratadine active Not Available Not Av ailable Not Available acetaminoph en active Not Available Not Available Not Available clonidine active Not Available Not Lydia ilable Not Available guaifenesin 09/26 completed Not Available Not Available Not Available omeprazole active Not Available Not Av ailable Not Available ibuprofen active Not Available Not Lydia ilable Not Available benzocaine active Not Available Not Av ailable Not Available metoprolol succinate active Not Available Not Available No t Available Suboxone 09/26 completed Not Available Not Available Not Available Excedrin Extra Strength active Not Available Not Available Not Available melatonin 5 mg tablet active Not Available Not Available No t Available Suboxone 2 mg-0.5 mg sublingual film active Not Available Not Available Not Available Suboxone 4 mg-1 mg sublingual film active Not Available Not Available Not Available Sublocade 300 mg/1.5 mL solution,ex tended release subcutaneou s syringe active Not Available Not Available No t Available Sublocade 100 mg/0.5 mL solution,ex tended release subcutaneou s syringe Inject 0.5 mL every month by subcutane ous route. active Not Available Not Available No t Available Vitals Date Recorded Body height Body mass index (BMI) Body weight Pain severity - 0-10 verbal numeric rating [Score] - Reported Provider Name and Address Organization Details Last Updated DateTime 09/26/2023 182.88 cm 40.1 kg/m2 767471.34 g 0 IVANNA PADGETT [address] [facility] [place], [address], [place] - [facility] 09/26/2023 15:12:52 Date Recorded Body height Body mass index (BMI) Body weight Body temperature Respiratory rate Heart rate Oxygen saturation Systolic And Diastolic Provider Name and Address Organization Details Last Updated DateTime 182.88 cm 40 kg/m2 947191. 75 g 97.3 [degF] 18 /min 62 /min 99 % 149/86 mm[Hg] JANAK GRIFFIN [place] - [facility] 18:17:40 Social History Question Answer Notes LastModified by trueAnthem ion Details LastModified Time Tobacco Smoking Status Former Smoker IVANNA PADGETT [address] [place], [address], [place] - [facility] 09/26/2023 15:16:19 Have You Had A Flu Shot This Season? Yes Information not available 09/26/2023 Have You Had Direct Contact, Or Contact During Intimacy, With Monkeypox Rash, Scabs, Or Body Fluids From A Person With Monkeypox? No Information not available 11/03/2022 Have You Recently Traveled Abroad? No Information not available 11/03/2022 Are You Currently In School? No Information not available 11/03/2022 Sex: Unknown Functional Status Question Answer Note LastModified by Organizat ion Details LastModified Time Do you use any illicit or recreational drugs? No Information not available 11/03/2022 Do you or have you ever used any other forms of tobacco or nicotine? Yes Information not available 11/03/2022 What is your level of alcohol consumption? None Information not available 11/03/2022 Are you currently employed? No Information not available 11/03/2022 Do you or have you ever used e-cigarettes or vape? Current user of electronic cigarettes [email or web address] Information not available 09/26/2023 Mental Status None recorded. Family History Relationship Description Onset Age of this Age Resolved Age Notes LastModified by Organization Details LastModified Time Father No current problems or disability Not available 11/2022 18:15:46 Mother No current problems or disability Not available 11/2022 18:15:46 Medical History No medical history recorded. Immunizations Vaccine Type Date Status Note Provider Nam e and Address Organization Details Recorded Time Influenza, split virus, quadrivalent, PF 06/20/2023 completed IVANNA PADGETT [address] [place] [address], [address] - [facility] 09/26/2023 15:12:59 Past Encounters Encounter ID Performer Location Encounter Start Date Encounter Closed Date Diagnosis/Indication Diagnosis SNOMED-CT Code Diagnosis ICD10 Code Diagnosis IMO Codes Diagnosis Note [id number] [place] LOJA [place] [address] [address] 11/03/2022 13:55:35 11/03/2022 19:09:12 Erythematous rash 803178062 R21 Fasciitis 61901550 M72.9 [id number] IVANNA PADGETT [address] [facility] [address] [place] [address] 09/26/2023 14:20:10 09/26/2023 15:50:41 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 This infection is contagious to other family and household members.. 1. Apply the permethrin cream from head to toe before bed. Shower in the am to remove.2. Wash all clothes and bedding. [place] or clean furniture or carpets.3. May repeat procedure in 10 to 14 days. You may continue to experience itching for 2-3 weeks following eliminatio n of the Scabies infestatio n. Continue to treat the itching as needed with Aveeno baths or antihistam ana as needed. Follow the treatment plan as we discussed and follow house cleaning procedures as discussed as well. The same procedures NEED TO BE repeated in 1 week. A void scratching , as it may further irritate the skin and may lead to infection. Signs of infection include:1. Redness extending out2. Purulent discharge3 . Pain with palpation4 . Heat coming from the skin Please do not hesitate to contact [facility] if you have any questions or concerns. If the rash does not resolve in 7-10 days - I would suggest a follow up visit with either [facility] , your PCP, or a dermatolog ist. Health Concerns Section Related Observation LastModified by Organization Detai ls LastModified Time None Recorded Concern Status LastModified by Organization Details LastModified Time None Recorded Advance Directives Directive None Recorded Payers Insurance Date Sequence Insurance Name Policy Number Policy Foley Covered Member ID Foley Member ID Guarantor Name 11/03/2022 PROMPT PAY An devi Bryant 09/26/2023 1 [facility] - HEALTH NET PLAN (MEDICAID HMO) NICOLE Bryant [id number] Roderick Bryant Notes Date Note Type Note Provider Name and Address Organization Details Recorded Time 11/03/2022 text/html UC Rash/Skin LesionReported by PatientHPIFor quality, patient reportspainful. For context, patient reportsnew detergent or skin product. For location, patient reportsfeet. For severity, patient reportsmoderate. For associated symptoms, patient reportsno feverandno fatigue.ROS as noted in the HPI RAUL LOJA MD [address] [place], [address], [place] - [facility] 11/03/2022 19:06:17 09/26/2023 text/html UC Rash/Skin LesionReported by PatientHPIFor source of patient information, patient reportsinformation obtained from patientandpatient arrived at urgent care ambulatory.The patient reports has had symptoms yesterday - and over the last 24 hours he has had more spots showing up. The patient notices it on his hands, legs, and abdomen. The patient reports it is tiny little scab areas. The patient states some have some clear liquid coming out. The patient is in the residential center and half of the home got it. The patient states that now the other half of the home. He is hoping to get the pill instead of the cream for treatment. The patient had scabies in 2016. The patient denies having any MRSA history. IVANNA PADGETT [address] [place], [address], [place] - [facility] 09/26/2023 15:51:28
== END 2025-08-22 15:17 | disposition home or self-care (01) ==
PROVIDERS: Emergency Provider Emergency Medicine; PCP Internal Medicine
DX: M54.50 Low back pain, unspecified (principal); Z91.81 History of falling
CPT/HCPCS: 72100; 72220; 99282; 99283

== ENCOUNTER → 2025-08-22 13:37 | Outpatient (BNV) | payer OTHER, SELFPAY | PROVIDERS: PCP Internal Medicine; Visit Provider Radiology Diagnostic Radiology | DX: M54.50 Low back pain, unspecified (principal); M53.3 Sacrococcygeal disorders, not elsewhere classified; Z04.3 Encounter for examination and observation following other accident | CPT/HCPCS: 72100; 72220 ==

== ENCOUNTER 2025-09-02 08:46 | Outpatient (AMB) | payer OTHER, SELFPAY ==
--- OUTSIDE RECORDS SUMMARY | 2025-09-02 08:51 | XMS_ITS | Clinical Summary ---
Author Organization [facility] Address [address] [place] [address] Phone Care Team Providers Care Glass Deposition Tender Name Role Phone Han Bond MD Primary [...] file Medical Devices Not on file Insurance [facility] Care Teams Glass Deposition Tender Relationship Specialty Start Date End Date Han Bond MD PCP - General 09/13/24 Additional Source Comments The information contained in this document represents components of the legal health record. It is not the complete legal health record.[facility]
--- OUTSIDE RECORDS SUMMARY | 2025-09-02 08:52 | XMS_ITS | Data Portability ---
Author Organization IVANNA Carlos [facility], [address] Address [address] [place] [address] Care Team Providers Care Director Of Conservation Name Role Phone SADI, KARTIK Primary Care Provider Assessment No assessment recorded. Plan of Treatment Reminders Order Date Submit Date Provider Last Modified By Organization Details Last Modified Time Details Appointments None recorded. Lab None recorded. Referral None recorded. Procedures None recorded. Surgeries None recorded. Imaging None recorded. Medication Orders ivermectin 3 mg tablet 2023 024 [facility]/Pharmacy #[id number], [address] [place], [address], 15:49:28 diclofenac sodium 75 mg tablet,sam yed release 2022 024 [facility] #[id number], [address] [place], [address], 15:13:46 Patient TargetsNo targets recorded. Patient Instructions Encounter Date Encounter Id Patient Instructions Last Modified By Organization Details Last Modified Time 09/26/2023 [id number] scabies: care instructions Not available 09/26/2023 15:30:09 Patient was evaluated by the Physician Rubber Goods Repairer using AV technology. This type of exam does not replace a need for an in-person evaluation if symptoms worsen or do not improve after 24-48 hours [email or web address] Not available 09/26/2023 15:21:10 Reason for Referral None Reported. Problems Name Problem SNOMED Code Status Onset Date Resolution Date Notes Provider Name and Address Organization Details Recorded Time Hypertensive disorder 50224624 Active 2022 JANAK GOODHIND null, [place] - [facility] 3 18:14:46 Depressive disorder 76715187 Active 2022 JANAK GABY null, [place] - [facility] 3 18:14:53 Anxiety 48898571 Active 2022 JANAK GREENWOODOVIDIO null, [place] - [facility] 3 18:15:00 Post-traumatic stress disorder 28616027 Active 2022 JANAK GABY null, [place] - [facility] 3 18:15:15 Degeneration of intervertebral disc 87512154 Active 2022 JANAK GRIFFIN null, [place] - [facility] 3 18:15:25 Gastroesophage al reflux disease 935119221 Active 2022 JANAK GRIFFIN null, [place] - [facility] 3 18:15:40 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 Procedures Surgical History Date Name Laterality Status Provider Name and Address Organization Details Recorded Time 4 Virtual Visit completed IVANNA PADGETT [address] [facility] [place], [place], [address], [place] - [facility] 09/26/2023 15:10:08 Imaging Results None recorded. Procedure Notes None recorded. Medical Equipment None Reported. Allergies Allergen ID Allergen Name Allergen Category Reaction Reaction Severity Criticality Documentation Date Start Date Code Code System Note Provider Name and Address Organization Details Recorded Time 539759 iodine medicatio n Not available Not available Not available 11/03/2022 5933 RxNorm JANAK GREENWOODOVIDIO marianela, [place] - [facility] 3 [...] Updated DateTime 09/26/2023 182.88 cm 40.1 kg/m2 256286.34 g 0 IVANNA PADGETT [address] [facility] [place] [place], [address], [place] - [facility] 09/26/2023 15:12:52 Date Recorded Body height Body mass index (BMI) Body weight Body temperature Respiratory rate Heart rate Oxygen saturation Systolic And Diastolic Provider Name and Address Organization Details Last Updated DateTime 182.88 cm 40 kg/m2 892340. 75 g 97.3 [degF] 18 /min 62 /min 99 % 149/86 mm[Hg] JANAK GRIFFIN [place] - [facility] 18:17:40 Social History Question Answer Notes LastModified by [employer] ion Details LastModified Time Tobacco Smoking Status Former Smoker IVANNA PADGETT [address] [facility] [place], [address], [place] - [facility] 09/26/2023 15:16:19 Have You Had A Flu Shot This Season? Yes [email or web address] Information not available 09/26/2023 Have You Had [...] or vape? Current user of electronic cigarettes [email or web address] Information not available 09/26/2023 Mental Status None [...] virus, quadrivalent, PF 06/20/2023 completed IVANNA PADGETT [address] [place] [address], [address] - [facility] 09/26/2023 15:12:59 Past Encounters Encounter ID Performer Location Encounter Start Date Encounter Closed Date Diagnosis/Indication Diagnosis SNOMED-CT Code Diagnosis ICD10 Code Diagnosis IMO Codes Diagnosis Note [id number] RAUL LOJA MD [address] [address] 11/03/2022 13:55:35 11/03/2022 19:09:12 Erythematous rash 228538181 R21 Fasciitis 60842888 M72.9 [id number] IVANNA PADGETT [address] [facility] [address] [place] [address] 09/26/2023 14:20:10 09/26/2023 15:50:41 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 This infection is contagious to other family and household members.. 1. Apply the permethrin cream from head to toe before bed. Shower in the am to remove.2. Wash all clothes and bedding. [place] or clean furniture or carpets.3. May repeat [...] PROMPT PAY An devi Bryant 09/26/2023 1 [facility] - HEALTH NET PLAN (MEDICAID HMO) NICOLE Bryant [id number] Roderick Bryant Notes Date Note Type Note Provider Name and Address Organization Details Recorded Time 11/03/2022 text/html UC Rash/Skin LesionReported by PatientHPIFor quality, patient reportspainful. For context, patient reportsnew detergent or skin product. For location, patient reportsfeet. For severity, patient reportsmoderate. For associated symptoms, patient reportsno feverandno fatigue.ROS as noted in the HPI RAUL LOJA MD [address] [place], [address], [place] - [facility] 11/03/2022 19:06:17 09/26/2023 [...] history. IVANNA PADGETT [address] [place], [address], [place] - [facility] 09/26/2023 15:51:28
--- NOTE | 2025-09-02 09:18 | A.OFFPC_ITS ---
Vital Signs 09/02/25 09:19 Height 5 ft 10 in Weight 243 lb 4 oz BMI 34.9 BP 130/80 Blood Pressure Location Lt brachial Position Sitting Pulse 84 Pulse Source Pulse Oximeter Temp 97.1 F Temp Source Temporal Artery Scan Pulse Oximetry (%) 97 Oxygen Delivery Method Room Air Intake Visit Reasons: Back pain after fall Intake Note: Patient is here to follow up on Back pain after fall. Table Top Tile Setter Required: No Student Education Specialist: Not Required per policy Accompanied by: Self / Same As Patient Allergies ivp dye Allergy (Severe, Uncoded 09/02/25 09:55) Anaphylaxis Medication List - Last Reconciled 09/02/25 by Ruy Clarke MD acetaminophen ER (Pain Relief (acetaminophen)) 650 mg PO Q8H atorvastatin 10 mg PO BEDTIME betamethasone, augmented 0.05 % topical BID buspirone 10 mg PO TID clonidine HCl 0.1 mg PO BEDTIME PRN lidocaine 5% (Lidoderm) 1 patch topical DAILY loratadine (Allergy Relief (loratadine)) 10 mg PO DAILY magnesium oxide 400 mg PO BEDTIME 30 days metoprolol tartrate 25 mg PO BID naproxen 500 mg PO BID PRN omeprazole 20 mg PO DAILY PRN riboflavin (vitamin B2) (Vitamin B-2) 400 mg (4 x 100 mg) PO ONCE sertraline 50 mg PO DAILY sumatriptan succinate 50 - 100 mg orally at onset of headache, may repeat in 2 hrs PRN; max 2 tabs per day or 4 tabs/week (may take with Ibuprofen or Tylenol) 30 days MDD 100mg tirzepatide (weight loss) (Zepbound) 12.5 mg subcut QWEEK Tobacco use date assessed: 09/02/25 Dental Screening Dental Screen Date: 01/29/25 HPI HPI Comments History of Present Illness Details History of Present Illness - The patient is a 40-year-old male pres enting for evaluation after a fall on ice earlier this month, after which he went to the emergency room. - He was told he may have a disc herniat ion and to follow up for an MRI. - The patient reports a history of inter mittent back pain that typically lasts one to two weeks before resolving for several months, but since the fall, the pain has become more flared up. - The patient describes the pain as a ra ndom popping sensation that causes his body to jerk, with some radiation to his legs and up into his shoulder and back. - He denies any urinary or bladder issue s. - He has tried cyclobenzaprine, which he does not like due to feeling woozy and experiencing spinal pain, and naproxen, which he reports is helpful. - He has also been using a heating pad. - The patient is inquiring about angelica gunter a prescription for Zepbound for weight loss, which he was previously receiving through [facility] with insurance coverage. Social History - The patient is currently managing his weight through [facility] and has used Zepbound. - He reports having [employer] insur[employer] e. Results [facility] Medical History Familial hypercholesterolemia Kyphosis Opioid abuse Surgical History No pertinent past surgical history Family History Mother Substance abuse COPD (chronic obstructive pulmonary disease) Anxiety Father Brain aneurysm Paternal Grandmother Lung cancer Paternal Grandfather Liver cancer Maternal Grandmother Stomach cancer Liver cancer Other FH: mental illness Social History Housing: Assisted Living Facility Alcohol intake: former Patient Tobacco Use Status: Former Tobacco user Cigarettes Per Day: 3 e-Cigarette/Vaping Use: Currently Using Frequency of e-Cigarette/Vaping Use: Daily Second Hand Smoke Exposure: Yes service: No Current occupational status: unemployed Current occupational exposures/hazards: No Cognitive needs: No Hearing needs: No Vision needs: Yes Questionnaire Thrive Questionnaire Date Thrive assessed: 01/29/25 I am a: Patient What is your living situation today?: I have a steady place to live Within the past 12 months, did the food you bought not last and you didn't have the money to get more?: Never true Within the past 12 months, did you worry whether your food would run out before you got money to buy more?: Never true Do you have trouble paying for medicines?: No Do you have trouble getting transportation to medical appointments?: Yes Do you have trouble paying your heating and electricity bill?: No Do you have trouble taking care of your child, family member or friend?: No Do you have trouble with day-to-day activities such as bathing, preparing meals, shopping, managing finances, etc.?: No Are you currently unemployed and looking for a job?: No Are you interested in more education?: Yes Currently or been in a relationship where the following occur: No concerns reported THRIVE Score: 1 MAX-7 AMB Questionnaire MAX-7 Date MAX - 7 assessed: 01/29/25 Source: Developed by Drs. Lazaro Palomares, Allyssa Orellana, Deangelo Ritchie and colleagues, with an educational ankit from [employer]. Review of Systems Narrative Review of Systems - Musculoskeletal: Reports intermittent back pain, which has flared up since a fall. - The pain is described as a random pop that causes his body to jerk and radiates to the legs and shoulder. - He also notes a new crunching sensation in his shoulder. - Genitourinary: Denies any urinary or bladder issues. Physical exam (Primary Care) Vital Signs: Last Vital Signs Temp 97.1 F 09/02/25 09:19 Pulse 84 09/02/25 09:19 BP 130/80 09/02/25 09:19 Pulse Ox 97 09/02/25 09:19 Oxygen Delivery Method Room Air 09/02/25 09:19 BMI result Body Mass Index 34.9 Tobacco/Smoking Status: Tobacco use Status Tobacco use date assessed 09/02/25 09/02/25 09:22 Patient Tobacco Use Status Former Tobacco user 09/02/25 09:22 Tobacco use type 01/10/24 10:36 e-Cigarette/Vaping Use Currently Using 09/02/25 09:22 Thrive Assessment: Date of Thrive Assessment Date Thrive assessed 01/29/25 09/02/25 09:22 Currently or been in a relationship where the following occur: No concerns reported Narrative Physical Exam General: Cooperative and healthy appearing Nutritional Appearance: Well nourished Orientation/consciousness: Patient oriented x3 Limitations: No limitations Head: Normal to inspection General: Appearance normal, both eyes and all related structures Neck: Normal visual inspection Chest: Normal palpation of entire chest wall Respiratory: Normal respiratory effort Neurology: Patient oriented x3 Coding Level of Care Code Est Pt Level 4 (34939) Add On Problem Visit Only Diagnoses Low Back Pain M54.50 Assessment & Plan Assessment & Plan (1) Low Back Pain: Code(s): M54.50 - Low back pain, unspecified Plan Plan - For the low back pain, the patient was advised to continue using a heating pad and naproxen. - A referral for physical therapy will be placed. - An MRI is not indicated at this time, but will be considered if there is no improvement after one month of physical therapy. - Regarding the Zepbound prescription for weight loss, the patient was instructed to contact his insurance carrier, [employer], to inquire about coverage criteria. - He should ask about the specific steps required for both him and the physician to get the medication approved. - Further action will be based on the information provided by the insurance company. Discussion Notes I discussed with the patient that his fall was unlikely to have caused a new disc herniation. I recommended a conservative approach for his back pain, incl uding physical therapy, heating pad use, and continuing naproxen. I explained that an MRI is not immediately necessary and we will re-evaluate after a month of physical therapy. Regarding his request for Zepbound, I advised him to first contact his insurance, [employer], to determine the coverage requirements and necessary steps for a prescription from my office, and we will proceed based on their guidance. Patient Instructions - Continue to use a heating pad for your back pain. - Our office will contact you to set up a referral for physical therapy. - If your pain does not improve after one month of physical therapy, please schedule a follow-up appointment. - You may continue taking Naproxen as needed for your pain. - Please call your insurance company, [employer], to ask if they will cover a prescription for Zepbound for weight loss from this office and what steps are needed. Medications: Discontinued cyclobenzaprine Discontinued Reason: Doctor's Order 10 mg PO TID PRN 15 tabs 0RF muscle spasm
[2025-09-02 09:19] VITALS: BP 130/80; PULSE 84; TEMP 36.2; O2SAT 97; BMI 34.9
== END 2025-09-02 09:50 | disposition home or self-care (01) ==
LOC: HO.HMCH 08:47
PROVIDERS: PCP Internal Medicine; Visit Provider Internal Medicine
DX: M54.50 Low back pain, unspecified (principal)

== ENCOUNTER → 2025-09-02 08:46 | Outpatient (BNVA) | payer OTHER, SELFPAY | PROVIDERS: PCP Internal Medicine; Visit Provider Internal Medicine | DX: M54.50 Low back pain, unspecified (principal); Z91.81 History of falling | CPT/HCPCS: 99212 ==